=== PATIENT | female | born 1950 | race Caucasian/White ===

== ENCOUNTER 2020-10-21 08:11 | Outpatient (REF) | payer MEDICARE, SELFPAY ==
--- NOTE | ~2020-10-21 | MM_ITS ---
EXAMINATION: MM SCREENING DIGITAL BREAST TOMOSYNTHESIS, BILATERAL CLINICAL INFORMATION: Screening. Asymptomatic. The lifetime risk of breast cancer based on the Tyrer-Cuzick Model is 6%. COMPARISON: Mammography: 10/02/2019, 06/15/2018, 12/05/2017, 06/03/2017, 05/17/2016, 04/12/2015 TECHNIQUE: Digital breast tomosynthesis is performed in both the craniocaudal and mediolateral oblique views along with computer-aided detection (CAD). Synthesized 2D images are generated from the tomosynthesis. FINDINGS: There are scattered areas of fibroglandular density (ACR BI-RADS breast composition Category b). There are scattered chronic bilateral parenchymal asymmetries similar to prior studies. There is no developing density or interval mass or architectural abnormality. There are no abnormal calcifications. The bilateral axilla and skin contours are unremarkable. MM/MM tomosynthesis screening BI IMPRESSION: No significant changes from prior studies. ASSESSMENT: BI-RADS 2: Benign RECOMMENDATION: Routine annual mammography screening. This patient's information was entered into a reminder system with a target due date for their next mammogram.
== END 2020-10-21 08:12 | disposition home or self-care (01) ==
LOC: HO.MAMMO 08:11
PROVIDERS: Visit Provider Internal Medicine
DX: Z12.31 Encounter for screening mammogram for malignant neoplasm of breast (principal)
CPT/HCPCS: 77063; 77067

== ENCOUNTER 2021-07-30 12:12 | Emergency (ER) | payer MEDICARE, SELFPAY ==
--- NOTE | ~2021-07-30 | XR_ITS ---
EXAMINATION: XR SHOULDER, RIGHT CLINICAL INFORMATION: Pain COMPARISON: None TECHNIQUE: Right shoulder is imaged in 3 views. FINDINGS: No fracture, dislocation, destructive process. The acromioclavicular alignment is normal. The glenohumeral joint appears normal. No visible rotator cuff cuff calcifications. Right lung apex clear. No apical pneumothorax or pleural reaction. XR/XR shoulder RT min 2V IMPRESSION: Unremarkable right shoulder.
[2021-07-30 12:15] VITALS: BP 148/70; PULSE 78; RESP 20; TEMP 36.3; O2SAT 98; BMI 21.1
--- NOTE | 2021-07-30 13:21 | ED_ITS ---
HPI - Extremity Problem General Chief complaint: Extremity Injury, Upper Stated complaint: r shoulder pain Time Seen by Provider: 07/30/21 13:21 Source: patient Mode of arrival: ambulatory Limitations: no limitations History of Present Illness HPI Narrative: Patient is a 71 year old female presenting to the emergency department today with right shoulder pain that is worse with movement up or out. Patient states that she has right shoulder pain that worsens with movement up or out. Patient states that she did some extensive paddling in her canoe this last Friday, against wind, and primarily with her right side. Patient denies any dizziness, lightheadedness, abdominal pain, nausea, vomiting, fever, chills, blurry vision, double vision, loss of vision, chest pain, difficulty breathing, shortness of breath, back pain, night sweats, pain with urination, increased urinary frequency, increased urinary urgency, blood in her urine or stool, syncope or a near syncopal episode, recent trauma or falls, bowel incontinence, bladder incontinence, bowel retention, bladder retention, or any other complaints at this time. MD Complaint: extremity pain Onset (ago): hour(s) Pain Consistency: constant Location: right and upper extremity Severity scale (1-10): 3 Quality: dull Radiation: distal Relieving factors: nothing Exacerbating factors: range of motion Associated symptoms: denies other symptoms Related Data Previous Rx's Medication Instructions Recorded cyclobenzaprine 10 mg tablet 10 mg PO TID PRN shoulder pain 7 07/30/21 days #21 tabs Allergies Allergy/AdvReac Type Severity Reaction Status Date / Time No Known Allergies Allergy Unverified 10/28/19 16:32 [No Known Allergies*] Review of Systems Constitutional: Constitutional: Reports no additional constitutional complaints, Denies chills, Denies fever(s) and Denies night sweats Eyes: Eyes: Reports no additional eye complaints, Denies blurry vision, Denies change in vision, Denies diplopia, Denies eye discharge, Denies loss of vision and Denies eye pain ENT: Denies dizziness Cardiovascular: Cardiovascular: Reports no additional cardiovascular complaints, Denies chest pain, Denies lightheadedness, Denies Loss of Consciousness and Denies dyspnea Respiratory: Respiratory: Reports no additional respiratory complaints and Denies dyspnea Gastrointestinal: Gastrointestinal: Reports no additional gastrointestinal complaints, Denies abdominal pain, Denies melena, Denies hematochezia, Denies change in bowel habits and Denies change in stool character Genitourinary: Genitourinary: Denies hematuria, Denies urinary frequency, Denies dysuria, Denies urinary incontinence, Denies urinary hesitancy and Denies urinary urgency Musculoskeletal: Musculoskeletal: Reports no additional musculoskeletal complaints, Denies numbness and Denies tingling Comments: right shoulder pain Neurologic: Denies dizziness, Denies loss of vision, Denies numbness and Denie s tingling Psychiatric: Psychiatric: Reports no additional psychiatric complaints Endocrine: Endocrine: Reports no additional endocrine complaints Hematologic/Lymphatic: Hematologic/Lymphatic: Reports no additional hematologic/lymphatic complaints Allergic/Immunologic: Allergic/Immunologic: Reports no additional allergic/immunologic complaints [facility] Past Medical History Attestation statement: The following information was validated with the patient. Source: old records reviewed Social History Social History Advance Directives: No Advance Directives Information Provided: No Physical Exam Vital Signs: Vital Signs: Last Vital Signs Temp 97.3 F 07/30/21 12:15 Pulse 78 07/30/21 12:15 Resp 20 07/30/21 12:15 BP 148/70 H 07/30/21 12:15 Pulse Ox 98 07/30/21 12:15 O2 Del Method 07/30/21 12:15 BMI result Body Mass Index 21.1 Const: General: cooperative, no acute distress, alert and awake Nutritional Appearance: well nourished Orientation/consciousness: patient oriented x3 Limitations: no limitations HEENT: Head: Yes normal to inspection and Yes atraumatic Ears: hearing grossly normal bilaterally and external ears normal General nose exam: Normal external nose present, no nasal discharge noted and no epistaxis Face and sinus: Yes normal facial exam, No abrasion and No laceration Mouth: Normal o ral and palatal mucosa present, no drooling and no muffled voice Eyes: General: appearance normal, both eyes and all related structures Periorbital: periorbital findings normal Eyelids: Yes eyelids normal Conjunctivae: conjunctivae normal Pupils: Equal, round and reactive pupils present EOM: EOMs intact bilaterally Neck: Neck: Yes normal visual inspection, Yes full ROM and Yes no lymphadenopathy Chest: Chest palpation & inspection: normal inspection of the chest Resp: Effort & Inspection: normal respiratory effort and able to speak in complete sentences Auscultation: clear to auscultation bilaterally Cardio: Rate: regular rate Rhythm: regular rhythm GI: Inspection: Yes normal to inspection Neuro: General: patient oriented x3 and moves all extremities Cranial nerves: Yes Equal, round and reactive pupils present Cognition (Neuro): normal cognition Motor exam (neuro): 5/5 motor strength present throughout Sensory Exam: Normal double simultaneous stimulation for sensation Coordination: [id number] test normal Extrem: Other: patient has pain with abduction General: Yes normal to inspection and Yes capillary refill normal Psych: Appearance: grossly normal Mental Status: mental status grossly normal Affect: normal affect Attitude: cooperative Thought process: Normal thought process present Thought content: Normal thought content present Insight: Good insight present (Psych) MDM - Extremity (Nontraumatic) MDM Narrative Medical decision making narrative: Patient is a 71 year old female presenting to the emergency department today with right shoulder pain. Patient's physical exam showed pain in the right shoulder with abduction but was otherwise unremarkable. Patient's right shoulder x-ray showed no acute process. I explained my physical exam findings as well as all test results to the patient. I answered all questions asked by the patient. Patient received IM Toradol and PO Flexeril which she stated helped her symptoms significantly. I stressed the importance of the patient taking her medication as prescribed. I stressed the importance of the patient following up with her primary care provider and an orthopedic provider. I stressed the importance of the patient returning to the emergency department immediately if her symptoms were to worsen or if she were to develop any dizziness, shortness of breath, difficulty breathing, chest pain, blurry vision, loss of vision, nausea, vomiting, abdominal pain, fever, chills, back pain, or any other complaints. Patient verbalized agreement and understanding with this treatment plan and discharge. Differential Diagnosis Differential diagnosis: Unlikely herpes zoster (rotator cuff injury) Medical Records Attestation: I reviewed the patient's medical records. Imaging Data Right shoulder x-ray: Attestation: I personally reviewed and interpreted this imaging study as follows: My impression: No acute process. Radiologist's impression: EXAMINATION: XR SHOULDER, RIGHT CLINICAL INFORMATION: Pain? COMPARISON: None? TECHNIQUE: Right shoulder is imaged in 3 views. FINDINGS: No fracture, dislocation, destructive process. The acromioclavicular alignment is normal. The glenohumeral joint appears normal. No visible rotator cuff cuff calcifications. Right lung apex clear. No apical pneumothorax or pleural reaction. ? XR/XR shoulder RT min 2V IMPRESSION: Unremarkable right shoulder. Dictated By: Андрей Rudd MD Signed By: Electronically signed by Андрей Rudd MD 07/30/21 7882 Discharge Plan Discharge Clinical Impression: Rotator cuff injury Patient Disposition: Home, Self-Care Instructions: Rotator Cuff Injury (ED) Additional Instructions: Follow up with your primary care provider and an orthopedic provider. Return to the emergency department immediately if your symptoms worsen or if you develop any dizziness, shortness of breath, difficulty breathing, chest pain, blurry vision, loss of vision, nausea, vomiting, abdominal pain, fever, chills, back pain, or any other complaints. Prescriptions: New cyclobenzaprine 10 mg tablet 10 mg PO TID PRN (Reason: shoulder pain) 7 Days Qty: 21 0RF Referrals: [facility] [Provider Group] Mariana Jean MD [Primary Care Provider] - Print Language: Mongolian
[2021-07-30] MEDS: Ketorolac Tromethamine 15 MG/ML VIAL IM (15:01)
[2021-07-30] MEDS: Cyclobenzaprine HCl 5 MG TABLET PO (15:02)
[2021-07-30 15:06] VITALS: BP 188/85; PULSE 81; RESP 16; TEMP 36.5; O2SAT 99
== END 2021-07-30 15:13 | disposition home or self-care (01) ==
PROVIDERS: Emergency Provider Emergency Medicine; PCP Internal Medicine
DX: M75.101 Unspecified rotator cuff tear or rupture of right shoulder, not specified as traumatic (principal); M25.511 Pain in right shoulder; Z79.899 Other long term (current) drug therapy
CPT/HCPCS: 73030; 96372; 99284; J1885

== ENCOUNTER → 2021-08-02 10:49 | Outpatient (BNVA) | payer MEDICARE, SELFPAY | PROVIDERS: PCP Internal Medicine; Visit Provider Physician Assistant | DX: M75.81 Other shoulder lesions, right shoulder (principal) | CPT/HCPCS: 99202 ==

== ENCOUNTER 2021-09-28 11:00 | Outpatient (RCR) | payer MEDICARE, SELFPAY ==
--- NOTE | 2021-08-27 14:00 | MHC.PT.EP ---
[facility] [place] Office [place] Office [place] Office [address] [phone] F: [phone] F: [phone] F: [phone] F: [phone] Physical Therapy Plan of Care Date of Evaluation: Date of Surgery: NA Diagnosis: R SHOULDER PAIN Assessment: Pt IS 71 YO F REFERRED TO PT FROM ORTHO ([facility]) WITH R SHLDER PAIN (Pt REPORTS L SHLDER STARTED TO BOTHER HER ALSO). Pt REPORTS HX OF NECK SURGERY IN DISTANT PAST. 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 SHOULD BENEFIT FROM PT TO ADDRESS THESE ISSUES. Frequency and Duration: The patient will be seen 2X/WK X 6 WKS Short Term Goals: 1. INCREASED POSTURE AWARENESS AND AWARENESS SHLDER/NECK CARE 2. LESS HAND PARESTHESIA REPORTED 3. 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 DECREASED PAIN R SHLDER AT LEAST 50% WITH ADLS 2. I HEP WITH DC EX PLAN 3. IMPROVED SPADI (18/130 AT SOC) Treatment Plan: Modalities to reduce pain, spasms and effusion. Manual therapy to restore motion and function. Therapeutic exercise to improve strength and flexibility. Neuromuscular re-education for posture and balance. Therapeutic activities to return to functional activities of daily living. Electronically signed by: TARYN HOUGH PT Please sign and return to therapist. Thank you for your referral.
--- NOTE | 2021-10-16 15:28 | MHC.PT.DC ---
[facility] [place] Office [place] Office [place] Office [address] Heather Bueno [address] [phone] F: [phone] F: [phone] F: [phone] F: [phone] Physical Therapy Discharge Report Diagnosis: R SHOULDER PAIN Date of Surgery: NA Date of Evaluation: 08/27/21 Date of Discharge: 10/16/21 Treatments to Date: 7 Cancellations to Date: No Shows to Date: Discharge Status: Independent with HEP Patient Elected to Stop Discharge Summary: Pt SEEN FOR INIT EVAL AND 6 SESSIONS. AT LAST APPT PER ASSESSMENT BY PATRICK FORD CLIENT ASSOCIATE 09/28 No px with above ex today. Held prone sh ext (pt was doing them B/L has had prior cerv surgery and was noted this day to have poor cerv positioning. NO FURTHER APPTS SCHEDULED (?). THIS PT CALLED TO Pt'S HOME ([phone]) BUT NO ANSWER AND NO ANSWERING MACHINE. WILL DC AT THIS TIME WITH HEP Electronically signed by: TARYN HOUGH PT Please sign and return to therapist. Thank you for your referral.
== END 2021-10-16 15:29 | disposition home or self-care (01) ==
LOC: HO.PT 11:00
PROVIDERS: PCP Internal Medicine; Visit Provider Physician Assistant
DX: M75.80 Other shoulder lesions, unspecified shoulder (principal)
CPT/HCPCS: 97110; 97140; 97161

== ENCOUNTER 2021-11-05 08:50 | Outpatient (REF) | payer MEDICARE, SELFPAY ==
--- NOTE | ~2021-11-05 | MM_ITS ---
EXAMINATION: MM SCREENING DIGITAL BREAST TOMOSYNTHESIS, BILATERAL CLINICAL INFORMATION: Screening. Asymptomatic. The lifetime risk of breast cancer based on the Tyrer-Cuzick Model is 9%. COMPARISON: Mammography: 10/21/2020, 10/02/2019, 06/15/2018, 12/05/2017, 2018, 11/22/2016, 05/17/2016. TECHNIQUE: Digital breast tomosynthesis is performed in both the craniocaudal and mediolateral oblique views along with computer-aided detection (CAD). Synthesized 2D images are generated from the tomosynthesis. FINDINGS: There are scattered areas of fibroglandular density (ACR BI-RADS breast composition Category b). Parenchymal pattern is similar to multiple prior exams. There are scattered bilateral stable asymmetries. Nodular asymmetry posterior upper outer left breast and anterior upper right breast are stable. There are no interval architectural changes. No architectural abnormality. No abnormal calcifications. The axilla are unremarkable. Skin contours are smooth. No skin thickening or retraction. No significant changes. MM/MM tomosynthesis screening BI IMPRESSION: No significant changes from prior studies. ASSESSMENT: BI-RADS 2: Benign RECOMMENDATION: Routine annual mammography screening. This patient's information was entered into a reminder system with a target due date for their next mammogram.
== END 2021-11-05 08:51 | disposition home or self-care (01) ==
LOC: HO.MAMMO 08:50
PROVIDERS: Visit Provider Internal Medicine
DX: Z12.31 Encounter for screening mammogram for malignant neoplasm of breast (principal)
CPT/HCPCS: 77063; 77067

== ENCOUNTER → 2021-11-29 11:12 | Outpatient (BNVA) | payer MEDICARE, SELFPAY | PROVIDERS: PCP Internal Medicine; Visit Provider Psychiatry & Neurology Psychiatry | DX: F32.5 Major depressive disorder, single episode, in full remission (principal) | CPT/HCPCS: 99212 ==

== ENCOUNTER → 2022-05-14 09:11 | Outpatient (BNVA) | payer MEDICARE, SELFPAY | PROVIDERS: PCP Internal Medicine; Visit Provider Psychiatry & Neurology Psychiatry | DX: F32.5 Major depressive disorder, single episode, in full remission (principal); M19.90 Unspecified osteoarthritis, unspecified site | CPT/HCPCS: 99212 ==

== ENCOUNTER 2022-11-07 09:44 | Outpatient (REF) | payer MEDICARE, SELFPAY | END 2022-11-07 09:45 | disposition home or self-care (01) | LOC: HO.MAMMO 09:44 | PROVIDERS: Visit Provider Internal Medicine | DX: Z12.31 Encounter for screening mammogram for malignant neoplasm of breast (principal) | CPT/HCPCS: 77063; 77067 ==

== ENCOUNTER → 2022-11-07 10:00 | Outpatient (BNV) | payer MEDICARE, SELFPAY | PROVIDERS: Visit Provider Radiology Diagnostic Radiology | DX: Z12.31 Encounter for screening mammogram for malignant neoplasm of breast (principal) | CPT/HCPCS: 77063; 77067 ==

== ENCOUNTER 2023-06-01 22:06 | Emergency (ER) | payer MEDICARE, OTHER, SELFPAY ==
--- NOTE | ~2023-06-01 | CT_ITS ---
EXAMINATION: CT head/brain wo IV con CLINICAL INFORMATION: transient vision loss/cva COMPARISON: CT head 07/23/2016 TECHNIQUE: Contiguous axial imaging was performed from the skull base to vertex without intravenous contrast. This CT examination was performed using dose optimization techniques as appropriate, variously including the following: * Automated exposure control * Adjustment of mA and/or kV according to patient size (this includes techniques or standardized protocols for targeted exams where dose is matched to indication/reason for exam; i.e. extremities or head) * Use of iterative reconstruction technique DLP: 586 mGy-cm. FINDINGS: There is no evidence of acute intracranial hemorrhage or territorial infarction. Ramsey to white matter differentiation is well preserved. No abnormal mass effect or midline shift is seen. No extra-axial fluid collections are identified. No hydrocephalus. Proportional prominence of the ventricles and sulcal spaces is consistent with mild volume loss. Patchy periventricular and deep white matter hypoattenuation is consistent with mild small vessel ischemic changes. The cerebellar tonsils are well positioned. No acute osseous or soft tissue abnormality. Visualized portions of the orbits are unchanged. The mastoid air cells and visualized portions of the paranasal sinuses are well aerated. CT/CT head/brain wo IV con IMPRESSION: No acute intracranial pathology.
[2023-06-01 22:10] VITALS: BP 199/101; PULSE 85; RESP 18; TEMP 36.4; O2SAT 100; BMI 21.6
[2023-06-01 22:19] VITALS: BP 193/103; PULSE 82; RESP 14; TEMP 36.3; O2SAT 100
--- NOTE | 2023-06-01 22:19 | PC.NURSE ---
Dr. Cantu made aware of pt.
--- NOTE | 2023-06-01 22:23 | ED_ITS ---
HPI - Neuro Symptoms/Deficit General Chief Complaint: Stroke Stated Complaint: stroke??? Time Seen by Provider: 06/01/23 22:23 Source: patient Mode of arrival: ambulatory Limitations: no limitations History of Present Illness HPI Narrative: Patient history of anxiety/depression otherwise healthy was in the bed reading the book and around 2139 noticed that her headache with nausea and unable to see properly lasted for about 10-15 minute no focal weakness would overall feeling weak with unsteady gait no chest pain no scotomas now patient is back to normal never had similar complaint in the past no history of migraine or seizures Related Data Home Medications ?Medication ?Instructions ?Recorded ?Confirmed gabapentin 100 mg capsule 100 mg PO BID 08/02/21 Previous Rx's ?Medication ?Instructions ?Recorded bupropion HCl 300 mg 24 hr tablet, 300 mg PO DAILY #30 tabs 05/15/23 extended release aspirin 81 mg tablet,delayed 81 mg PO DAILY #30 tabs 06/02/23 release Allergies Allergy/AdvReac Type Severity Reaction Status Date / Time No Known Allergies Allergy Verified 06/01/23 22:11 [No Known Allergies*] Review of Systems 2 Review of Systems: Yes all other systems are reviewed and are negative [facility] Past Medical History Medical History Major depression in complete remission PMR (polymyalgia rheumatica) Osteoarthritis Social History Social History Patient Tobacco Use Status: Never used Tobacco Advance Directives: No Advance Directives Information Provided: No 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 Oriented X3. No acute distress. Eyes: PERRLA, No Nystagmus fundus normal visual weaver normal ENT: Pharynx normal. Oral Mucosa moist Neck: Normal inspection. Neck supple. CVS: Normal heart rate and rhythm. Pulses normal. Respiratory: No respiratory distress. Equal air entry bilateral, no wheezing/rales/rhonchi Abdomen: Soft and nontender. Bowel sounds are present, no mass palpable, no CVA tenderness Skin: Skin warm and dry. Normal skin color. Normal skin turgor. Extremities: No lower extremity edema. No calf tenderness Neuro: Oriented X 3. No motor deficit. No sensory deficit.No cerebellar signs , cranial nerves II-XII intact normal speech Medications Administered Discontinued Medications Generic Name Dose Route Start Last Admin Trade Name Shruthi PRN Reason Stop Dose Admin Acetaminophen/Butalbital/Caffeine 1 tab 06/02/23 00:47 06/02/23 01:03 Butalb/Acetamin/Caff 50/325/40 Tablet PO 06/02/23 00:48 1 tab ONCE ONE Administration Aspirin 81 mg 06/02/23 00:41 06/02/23 01:04 Aspirin 81 Mg Tab.Chew PO 06/02/23 00:42 81 mg ONCE ONE Administration Ondansetron HCl 4 mg 06/02/23 00:47 06/02/23 01:04 Ondansetron Odt 4 Mg Tab.Rapdis TRANSLINGU 06/02/23 00:48 4 mg ONCE ONE Administration Medical Decision Making Medical Decision Making [facility] Narrative: Patient with TBVL with CT scan negative no arrhythmias no carotid bruit with headache likely the cause possible migraine. Patient ESR normal, CRP temporal arteritis ruled out no tenderness in the temporal area patient was given Fioricet and aspirin advised to follow with neurology, does have sinus rhythm. Patient ambulatory in the ED in steady gait Differential Diagnosis Differential Diagnoses: The differential diagnosis associated with the presentation includes Amaurosis fugax/TIA/migraine headache/temporal arteritis Admission/Observation Consideration of admission/observation: Escalation of care including admission/observation considered Lab Data [facility] Lab Attestation statement: I reviewed the patient's lab results. 06/01/23 22:38 06/01/23 22:38 Labs: Lab Results 06/01/23 06/01/23 Range/Units 22:32 22:38 WBC 3.8 L (4.8-10.8) X10*3/uL RBC 4.47 (4.20-5.50) X10*6/uL Hgb 12.8 (12.0-16.0) g/dl Hct 37.7 (37.0-47.0) % MCV 84.3 (80.0-98.0) fL MCH 28.6 (27.0-33.0) pg MCHC 34.0 (31.0-35.0) g/dl RDW 12.7 (11.0-16.0) % Plt Count 180 (160-400) X10*3/uL MPV 9.0 L (9.4-12.3) fL Immature Gran % (Auto) 0.3 (0.0-0.4) % Neut % (Auto) 45.1 (45-73) % Lymph % (Auto) 34.6 (20-40) % [place] % (Auto) 13.7 H (2-11) % Eos % (Auto) 5.8 H (0-4) % Baso % (Auto) 0.5 (0-2) % Lymph # (Auto) 1.3 (1.2-4.9) X10*3/uL [place] # (Auto) 0.5 (0.1-1.2) X10*3/uL Eos # (Auto) 0.2 (0.0-0.4) X10*3/uL Baso # (Auto) 0.0 (0.0-0.2) X10*3/uL Abs Immat Gran (auto) 0.01 (0.00-0.03) X10*3/uL Absolute Neuts (auto) 1.7 L (2.0-8.3) x10*3/uL Absolute Nucleated RBC 0.000 (0.0-0.012) X10*3/uL Nucleated RBC % (auto) 0.0 (0.0-0.2) /100WBC ESR 8 (0-20) MM/HR PT 10.8 L (11.1-13.3) SEC INR 0.9 (0.9-1.1) APTT 30.8 (26.0-36.8) SEC Sodium 139 (135-145) mmol/L Potassium 3.6 (3.3-5.1) mmol/L Chloride 104 (96-108) mmol/L Carbon Dioxide 29 (22-29) mmol/L Anion Gap 10 L (12-20) BUN 18 H (9-16) mg/dL Creatinine 0.74 (0.5-1.4) mg/dL Estim Creat Clear Calc 47.9 Estimated GFR > 60 POC Glucose 99 (60-115) mg/dL Random Glucose 110 (60-115) mg/dL Calcium 9.4 (8.4-10.2) mg/dL Magnesium 2.2 (1.6-2.6) mg/dL Total Bilirubin 0.2 (0.0-1.0) mg/dL AST 22 (5-31) U/L ALT 18 (0-31) U/L Alkaline Phosphatase 76 (39-117) U/L Troponin I High Sens < 2.7 (<3.5-17.0) ng/L C-Reactive Protein < 0.04 (< or = 0.50) mg/dL Total Protein 6.9 (6.5-8.0) g/dL Albumin 4.4 (3.5-5.0) g/dL Independent Interpretation I performed an independent interpretation of an: CT Scan Radiology Impression Discussion of test interpretation with radiology: I have reviewed the radiologist's reading. Discharge Plan Discharge Clinical Impression: AFX (amaurosis fugax) Patient Disposition: Home, Self-Care Instructions: Transient Ischemic Attack (ED) Additional Instructions: Visual disturbance likely from spasm while the blood vessels possible migraine Take baby aspirin daily Follow up with PCP/neurology Report to the ER if recurrence of the symptoms or any focal weakness Prescriptions: New aspirin 81 mg tablet,delayed release (DR/EC) 81 mg PO DAILY Qty: 30 0RF No Action bupropion HCl 300 mg tablet extended release 24 hr 300 mg PO DAILY Qty: 30 4RF gabapentin 100 mg capsule 100 mg PO BID Referrals: Shanda Kelly MD [Physician] - 1 week Print Language: Cymraes
--- NOTE | 2023-06-01 22:33 | ECG_ITS ---
Test Reason : STROKE Blood Pressure : / mmHG Vent. Rate : 083 BPM Atrial Rate : 083 BPM P-R Int : 162 ms QRS Dur : 086 ms QT Int : 362 ms P-R-T Axes : 056 046 052 degrees QTc Int : 425 ms Normal sinus rhythm Normal ECG When compared with ECG of 25-APR-2005 11:05, No significant change was found Referred By: Eliezer Shepard Electronically Signed By:KEVIN STEPHENS MD
[2023-06-01 22:36] LABS: Glucose, Whole Blood 99 mg/dL (60-115)
[2023-06-01 22:43] LABS: MANUAL DIFF FLAG NO
[2023-06-01 22:44] LABS: Basophils Percent Auto 0.5 % (0-2); Eosinophils Absolute Auto 0.2 X10*3/uL (0.0-0.4); Eosinophils Percent Auto 5.8 % (0-4); Hematocrit 37.7 % (37.0-47.0); Hemoglobin 12.8 g/dl (12.0-16.0); Imm Gran Abs Auto 0.01 X10*3/uL (0.00-0.03); Imm Gran Pct Auto 0.3 % (0.0-0.4); Lymphocytes Absolute Auto 1.3 X10*3/uL (1.2-4.9); Lymphocytes Percent Auto 34.6 % (20-40); Mean Corpuscular Hemoglobin 28.6 pg (27.0-33.0); Mean Corpuscular Volume 84.3 fL (80.0-98.0); Monocytes Absolute Auto 0.5 X10*3/uL (0.1-1.2); Monocytes Percent Auto 13.7 % (2-11); Neutrophils Absolute Auto 1.7 x10*3/uL (2.0-8.3); Neutrophils Percent Auto 45.1 % (45-73); Platelet Count 180 X10*3/uL (160-400); Red Blood Count 4.47 X10*6/uL (4.20-5.50); Red Cell Distribution Width 12.7 % (11.0-16.0); White Blood Count 3.8 X10*3/uL (4.8-10.8)
[2023-06-01 22:49] LABS: INTERNATIONAL NORM RATIO 0.9 (0.9-1.1); Prothrombin Time 10.8 SEC (11.1-13.3)
[2023-06-01 22:52] LABS: Partial Thromboplastin Time 30.8 SEC (26.0-36.8)
[2023-06-01 23:12] LABS: Alanine Aminotransferase 18 U/L (0-31); Albumin Level 4.4 g/dL (3.5-5.0); Alkaline Phosphatase 76 U/L (39-117); Anion Gap 10 (12-20); Aspartate Amino Transferase 22 U/L (5-31); Bilirubin Total 0.2 mg/dL (0.0-1.0); Blood Urea Nitrogen 18 mg/dL (9-16); Calcium 9.4 mg/dL (8.4-10.2); Carbon Dioxide 29 mmol/L (22-29); Chloride 104 mmol/L (96-108); Creatinine Clr Calc Pharmacy 47.9; Estimated Glomerular Filt Rate > 60; Glucose Random 110 mg/dL (60-115); Magnesium 2.2 mg/dL (1.6-2.6); Potassium 3.6 mmol/L (3.3-5.1); Sodium 139 mmol/L (135-145); Total Protein 6.9 g/dL (6.5-8.0)
[2023-06-01 23:20] LABS: Troponin-I High Sensitivity < 2.7 ng/L (<3.5-17.0)
[2023-06-02 00:34] VITALS: BP 172/82; PULSE 70; RESP 12; TEMP 36.4; O2SAT 99
[2023-06-02] MEDS: Butalb/Acetamin/Caff 50/325/40 TABLET 1 TAB PO (01:03)
[2023-06-02] MEDS: Ondansetron ODT 4 MG TAB.RAPDIS TRANSLINGU (01:04)
[2023-06-02] MEDS: Aspirin 81 MG TAB.CHEW PO (01:04)
[2023-06-02 01:11] LABS: C Reactive Protein < 0.04 mg/dL (< or = 0.50)
[2023-06-02 01:32] LABS: Erythrocyte Sedimentation Rate 8 MM/HR (0-20)
[2023-06-02 01:49] VITALS: BP 169/72; PULSE 72; RESP 18; TEMP 36.7; O2SAT 98
== END 2023-06-02 01:49 | disposition home or self-care (01) ==
PROVIDERS: Emergency Provider Internal Medicine; PCP Family Medicine
DX: G45.3 Amaurosis fugax (principal); R51.9 Headache, unspecified; R11.2 Nausea with vomiting, unspecified; R26.81 Unsteadiness on feet; Z79.899 Other long term (current) drug therapy
CPT/HCPCS: 36415; 70450; 80053; 82947; 83735; 84484; 85025; 85610; 85652; 85730; 86140; 93005; 99284

== ENCOUNTER → 2023-06-01 22:33 | Outpatient (BNV) | payer OTHER, SELFPAY | PROVIDERS: Emergency Provider Internal Medicine; PCP Family Medicine; Visit Provider Internal Medicine Cardiovascular Disease | DX: I63.9 Cerebral infarction, unspecified (principal) | CPT/HCPCS: 93010 ==

== ENCOUNTER 2023-08-21 13:54 | Outpatient (REF) | payer MEDICARE, OTHER, SELFPAY ==
--- NOTE | ~2023-08-21 | US_ITS ---
EXAMINATION: US EXTRACRANIAL CAROTID DUPLEX, BILATERAL CLINICAL INFORMATION: TIA COMPARISON: None available. TECHNIQUE: Real-time ultrasound and Doppler techniques (integrating B-mode 2-D vascular images, Doppler spectral analysis and color-flow Doppler imaging) were utilized to interrogate the extracranial carotid arteries, the vertebral arteries and proximal subclavian arteries bilaterally. The degree of stenosis is determined by criteria similar to NASCET. FINDINGS: Right Side: 1. There is no atherosclerotic plaque seen in the bifurcation/proximal ICA region. 2. The common carotid artery PSV proximally is 50.6 cm/s and distally 50.8 cm/s. 3. The proximal internal carotid artery velocities are 43.9 cm/s systolic and 15.2 cm/s diastolic. 4. The proximal external carotid artery PSV is 52.2 cm/s. 5. The vertebral artery shows antegrade flow. 6. The subclavian artery waveforms are normal. Left Side: 1. There is no atherosclerotic plaque seen in the bifurcation/proximal ICA region. 2. The common carotid artery PSV proximally is 96.9 cm/s and distally 57.4 cm/s. 3. The proximal internal carotid artery velocities are 45.9 cm/s systolic and 18.2 cm/s diastolic. 4. The proximal external carotid artery PSV is 43.6 cm/s. 5. The vertebral artery shows antegrade flow. 6. The subclavian artery waveforms are normal. US/US carotid duplex BI IMPRESSION: 1. RIGHT: Normal right internal carotid artery without atherosclerotic plaque or hemodynamically significant stenosis. 2. LEFT: Normal left internal carotid artery without atherosclerotic plaque or hemodynamically significant stenosis.
== END 2023-08-21 13:55 | disposition home or self-care (01) ==
LOC: HO.US 13:54
PROVIDERS: PCP Family Medicine; Visit Provider Psychiatry & Neurology Neurology
DX: G45.9 Transient cerebral ischemic attack, unspecified (principal)
CPT/HCPCS: 93880

== ENCOUNTER 2023-08-22 11:18 | Outpatient (AMB) | payer MEDICARE, OTHER, SELFPAY ==
--- NOTE | 2023-08-22 11:34 | MHC.OFFVISPS ---
Intake Intake Visit Reasons: depression Allergies No Known Allergies [No Known Allergies*] Allergy (Verified 06/01/23 22:11) Medication List - Last Reconciled 08/22/23 by Pete Villareal MD albuterol sulfate 90 mcg/actuation inhalation aspirin 81 mg PO DAILY atorvastatin 40 mg PO DAILY bupropion HCl XL 300 mg PO DAILY gabapentin 100 mg PO BID HPI- Psychiatric Chief Complaint: depression HPI Narrative: Pt seen in f/u does have a partner that lives in a different house a short distance away this works out quite well for her. Patient very active with her children. Pleasant has good friends future oriented no depressive episodes seems quite content her life. Future oriented able to enjoy things no significant medical concerns noted. Past Psychiatric History: outpt hx of depression no suicidal episodes no psychiatric admissions has been in long-term outpatient treatment and has generally done well the past number of years Assessment and Plan Assessment & Plan (1) Major depression in complete remission: Status: Acute Code(s): F32.5 - Major depressive disorder, single episode, in full remission Plan Continue Wellbutrin 300 mg daily has been stable on this dose without side effects for a number of years. Discussed with patient possibility of seen her PCP for management of medication has been in a good stable emotional place history of polymyalgia Medications: Refilled bupropion HCl XL 300 mg PO DAILY 90 tabs 2RF Counseling and coordination of Care Medication management counseling: Effectiveness, Side effects and Duration Diagnosis and Prognosis Counseling: Adequacy of current interventions Details-Diagnosis/Prognosis counseling: Discussed with patient option to taper down on Wellbutrin wishes to continue at current dose feels stable history of past depressive episodes no complaints of side effects continue plan of care Details: I spent [30] minutes reviewing the record, seeing the patient and documenting in the medical record. Counseling provided to the patient/caregiver as outlined below. Addressed patient/caregiver concerns regarding current medication regime including effective adherence. Addressed patient/caregiver concerns regarding diagnosis and prognosis including accuracy of diagnosis, prognosis over time, impact of diagnosis. Addressed patient/caregiver concerns regarding impact of recent stressors. 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
== END 2023-08-22 11:45 | disposition home or self-care (01) ==
LOC: HO.HOP 11:18
PROVIDERS: PCP Family Medicine; Visit Provider Psychiatry & Neurology Psychiatry
DX: F32.5 Major depressive disorder, single episode, in full remission (principal)
CPT/HCPCS: 99214

== ENCOUNTER → 2023-08-22 11:18 | Outpatient (BNVA) | payer MEDICARE, OTHER, SELFPAY | PROVIDERS: PCP Family Medicine; Visit Provider Psychiatry & Neurology Psychiatry | DX: F32.5 Major depressive disorder, single episode, in full remission (principal) | CPT/HCPCS: 99212 ==

== ENCOUNTER 2023-11-08 20:39 | Emergency (ER) | payer MEDICARE, OTHER, SELFPAY ==
--- NOTE | ~2023-11-08 | CT_ITS ---
EXAMINATION: CT CERVICAL SPINE WITHOUT CONTRAST CLINICAL INFORMATION: Neck pain COMPARISON: None TECHNIQUE: Multidetector CT of the cervical spine was performed without intravenous contrast. Reformatted axial, coronal and sagittal images were reviewed. This CT examination was performed using dose optimization techniques as appropriate, variously including the following: *Automated exposure control *Adjustment of mA and/or kV according to patient size (this includes techniques or standardized protocols for targeted exams where dose is matched to indication/reason for exam; i.e. extremities or head) *Use of iterative reconstruction technique DLP: 232 mGy-cm FINDINGS: There is no fracture, malalignment or prevertebral soft tissue abnormality seen in the cervical spine. There is no abnormal widening of the predental space, separation of the lateral masses of C1 or facet joint distraction. Altered level degenerative changes resulting in varying degrees of neural foraminal stenosis. For example, there is severe left neural foraminal stenosis at C4-5 on the left and moderate bilateral neural foraminal stenosis at C5-6. Vertebral body and intervertebral disc height are normal. The visualized portions of the brain are unremarkable. Right apical [address]/CT cervical spine wo IV con IMPRESSION: 1. No acute fracture or malalignment of the cervical spine. 2. Multilevel degenerative changes resulting in varying degrees of neural foraminal stenosis. This is worst at C4-5 on the left where there is severe left neural foraminal stenosis. 3. Right apical 6 mm groundglass nodule. According to the UPDATED 2017 Fleischner Society recommendations, the advised follow-up imaging for a single pure ground-glass nodule measuring 6 mm or greater is: CT at 6-12 months to confirm persistence, then CT every 2 years until 5 years if it persists. Electronically signed by: Leo Esteban DO 11/08/2023 09:54 PM EDT
--- NOTE | 2023-11-08 20:46 | ED_ITS ---
HPI - General Adult General Chief complaint: General Medical Stated complaint: rt side neck pain Time Seen by Provider: 11/09/23 00:40 Source: patient Limitations: no limitations History of Present Illness ED Provider: Maryana Ramos PA-C HPI narrative: 73-year-old female with a history of osteoarthritis, depression and prior rotator cuff tendinitis presents with neck pain x2 weeks. Pain primarily over right side of the neck. Pain is nonradiating. Denies right upper extremity discomfort or weakness, no paresthesias. Patient does not have a preceding injury. She denies headache, visual changes, nausea or vomiting. Related Data Home Medications ?Medication ?Instructions ?Recorded ?Confirmed gabapentin 100 mg capsule 100 mg PO BID 08/02/21 08/22/23 albuterol sulfate 90 mcg/actuation inhalation 08/22/23 08/22/23 aerosol inhaler atorvastatin 40 mg tablet 40 mg PO DAILY 08/22/23 08/22/23 Previous Rx's ?Medication ?Instructions ?Recorded aspirin 81 mg tablet,delayed 81 mg PO DAILY #30 tabs 06/02/23 release bupropion HCl 300 mg 24 hr tablet, 300 mg PO DAILY #90 tabs 08/22/23 extended release methocarbamol 500 mg tablet 500 mg PO TID PRN pain #15 tabs 11/09/23 methylprednisolone 4 mg tablets in 4 mg PO QAM #1 ea 11/09/23 a dose pack (Medrol (Esteban)) Allergies Allergy/AdvReac Type Severity Reaction Status Date / Time No Known Allergies Allergy Verified 11/08/23 20:48 [No Known Allergies*] Review of Systems 2 Review of Systems: Yes all other systems are reviewed and are negative Constitutional: Constitutional: Denies fatigue and Denies fever(s) ENT: Reports neck pain Cardiovascular: Cardiovascular: Denies chest pain and Denies dyspnea Respiratory: Respiratory: Denies dyspnea Gastrointestinal: Gastrointestinal: Denies vomiting Musculoskeletal: Musculoskeletal: Reports neck pain and Denies tingling Neurologic: Denies tingling Endocrine: Endocrine: Denies fatigue PMF Past Medical History Attestation statement: The following information was validated with the patient. 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 Physical Exam ED Vital Signs: Vital Signs - 24 hr 11/08/23 20:47 11/09/23 00:07 Temperature 98.2 F 98.3 F Pulse Rate 87 78 Respiratory Rate 19 16 Blood Pressure 122/54 L 126/63 Pulse Oximetry 98 100 Oxygen Delivery Method Room Air Room Air BMI result Body Mass Index 20.9 Const Other: Alert, well in appearance Orientation/consciousness: patient oriented x3 Neck Other: Pain elicited with range of motion of the neck, she has full range of motion, no meningeal signs Resp Effort & Inspection: normal respiratory effort Cardio Other: Peripheral perfusion Skin Other: Warm dry no rash Neuro Other: Ambulates with normal steady gait General: patient oriented x3, no focal motor deficits and CN's II-XI intact bilaterally Psych Other: Calm cooperative Course Course Course Narrative: This is an RME: Additional HPI, ROS, PE not included below will be deferred to primary provider. [facility] assessment and note performed by: Valeria Kimball PA-C This is a [id number]-[id number]-female, with no known medical problems, who presents to the ER with complaints of atraumatic right sided neck pain which started several weeks ago. No trauma or injury. Plan:Labs, and CT c spine ordered Medical Decision Making Medical Decision Making MDM Narrative: 73-year-old female with a history of osteoarthritis, depression and prior rotator cuff tendinitis presents with neck pain x2 weeks. Pain primarily over right side of the neck. Pain is nonradiating. Denies right upper extremity discomfort or weakness, no paresthesias. Patient does not have a preceding injury. She denies headache, visual changes, nausea or vomiting. Problem: Arthritis and age History: Per patient I have considered the following differential diagnoses: Cervical strain, VAD, cervical radiculopathy, meningitis Plan: Patient is assessment began from triage out in E , screening labs and a CT of her cervical spine were obtained. She has some significant degenerative changes. She requires an outpatient MRI, likely PT. She can follow up with the primary care provider. Sending with a steroid taper and muscle relaxant. Thought about VAD, however there was no preceding heavy lifting mechanism, she has had symptoms for 2 weeks and she is neuro intact. Thought about meningitis, however there are no meningeal signs on exam, she is not ill, she is afebrile. I have independently reviewed the following tests: Labs: No leukocytosis, not anemic, no electrolyte abnormality CT cervical spine:CT CERVICAL SPINE WITHOUT CONTRAST CLINICAL INFORMATION: Neck pain COMPARISON: None TECHNIQUE: Multidetector CT of the cervical spine was performed without intravenous contrast. Reformatted axial, coronal and sagittal images were reviewed. This CT examination was performed using dose optimization techniques as appropriate, variously including the following: *Automated exposure control *Adjustment of mA and/or kV according to patient size (this includes techniques or standardized protocols for targeted exams where dose is matched to indication/reason for exam; i.e. extremities or head) *Use of iterative reconstruction technique DLP: 232 mGy-cm FINDINGS: There is no fracture, malalignment or prevertebral soft tissue abnormality seen in the cervical spine. There is no abnormal widening of the predental space, separation of the lateral masses of C1 or facet joint distraction. Altered level degenerative changes resulting in varying degrees of neural foraminal stenosis. For example, there is severe left neural foraminal stenosis at C4-5 on the left and moderate bilateral neural foraminal stenosis at C5-6. Vertebral body and intervertebral disc height are normal. The visualized portions of the brain are unremarkable. Right apical [address]/CT cervical spine wo IV con IMPRESSION: 1. No acute fracture or malalignment of the cervical spine. 2. Multilevel degenerative changes resulting in varying degrees of neural foraminal stenosis. This is worst at C4-5 on the left where there is severe left neural foraminal stenosis. 3. Right apical 6 mm groundglass nodule. According to the UPDATED 2017 Fleischner Society recommendations, the advised follow-up imaging for a single pure ground-glass nodule measuring 6 mm or greater is: CT at 6-12 months to confirm persistence, then CT every 2 years until 5 years if it persists. Electronically signed by: Leo Esteban DO 11/08/2023 09:54 PM EDT Dictated By: Leo Esteban Signed By: <Electronically signed by Leo Esteban in OV> 11/08/23 2154 Lab Data 11/08/23 21:23 11/08/23 21:23 Labs: Lab Results 11/08/23 Range/Units 21:23 WBC 3.8 L (4.8-10.8) X10*3/uL RBC 3.98 L (4.20-5.50) X10*6/uL Hgb 11.5 L (12.0-16.0) g/dl Hct 34.3 L (37.0-47.0) % MCV 86.2 (80.0-98.0) fL MCH 28.9 (27.0-33.0) pg MCHC 33.5 (31.0-35.0) g/dl RDW 12.9 (11.0-16.0) % Plt Count 166 (160-400) X10*3/uL MPV 8.8 L (9.4-12.3) fL Immature Gran % (Auto) 0.0 (0.0-0.4) % Neut % (Auto) 48.8 (45-73) % Lymph % (Auto) 30.5 (20-40) % [place] % (Auto) 14.9 H (2-11) % Eos % (Auto) 5.3 H (0-4) % Baso % (Auto) 0.5 (0-2) % Lymph # (Auto) 1.2 (1.2-4.9) X10*3/uL [place] # (Auto) 0.6 (0.1-1.2) X10*3/uL Eos # (Auto) 0.2 (0.0-0.4) X10*3/uL Baso # (Auto) 0.0 (0.0-0.2) X10*3/uL Abs Immat Gran (auto) 0.00 (0.00-0.03) X10*3/uL Absolute Neuts (auto) 1.8 L (2.0-8.3) x10*3/uL Absolute Nucleated RBC 0.000 (0.0-0.012) X10*3/uL Nucleated RBC % (auto) 0.0 (0.0-0.2) /100WBC ESR 12 (0-20) MM/HR Sodium 140 (135-145) mmol/L Potassium 3.9 (3.3-5.1) mmol/L Chloride 105 (96-108) mmol/L Carbon Dioxide 26 (22-29) mmol/L Anion Gap 13 (12-20) BUN 34 H (9-16) mg/dL Creatinine 0.86 (0.5-1.4) mg/dL Estim Creat Clear Calc 41.1 Estimated GFR > 60 Random Glucose 77 (60-115) mg/dL Calcium 9.1 (8.4-10.2) mg/dL Total Bilirubin 0.2 (0.0-1.0) mg/dL Direct Bilirubin < 0.2 (0.0-0.5) mg/dL AST 24 (5-31) U/L ALT 21 (0-31) U/L Alkaline Phosphatase 90 (39-117) U/L C-Reactive Protein < 0.10 (< or = 0.50) mg/dL Total Protein 6.7 (6.5-8.0) g/dL Albumin 4.1 (3.5-5.0) g/dL Discharge Plan Discharge Clinical Impression: Cervical arthritis, Osteoarthritis Patient Disposition: Home, Self-Care Instructions: Osteoarthritis (ED) Additional Instructions: You were found to have significant arthritic changes of the neck. You need to follow up with your primary care provider, the next step would be to have an outpatient MRI. It Is likely that you will also be referred for physical therapy. Use the steroid taper as directed, take this medication in the morning. Use the methocarbamol, this is a muscle relaxant, as needed for pain. To note it may cause drowsiness, do not drive or operate machinery while taking the medication. Prescriptions: New methylprednisolone [Medrol (Esteban)] 4 mg tablets,dose pack 4 mg PO QAM Qty: 1 0RF Rx Instructions: Use per package instructions methocarbamol 500 mg tablet 500 mg PO TID PRN (Reason: pain) Qty: 15 0RF No Action aspirin 81 mg tablet,delayed release (DR/EC) 81 mg PO DAILY Qty: 30 0RF gabapentin 100 mg capsule 100 mg PO BID atorvastatin 40 mg tablet 40 mg PO DAILY albuterol sulfate 90 mcg/actuation HFA aerosol inhaler inhalation bupropion HCl 300 mg tablet extended release 24 hr 300 mg PO DAILY Qty: 90 2RF Print Language: Thai
[2023-11-08 20:47] VITALS: BP 122/54; PULSE 87; RESP 19; TEMP 36.8; O2SAT 98; BMI 20.9
[2023-11-08 21:31] LABS: MANUAL DIFF FLAG NO
[2023-11-08 21:32] LABS: Basophils Percent Auto 0.5 % (0-2); Eosinophils Absolute Auto 0.2 X10*3/uL (0.0-0.4); Eosinophils Percent Auto 5.3 % (0-4); Hematocrit 34.3 % (37.0-47.0); Hemoglobin 11.5 g/dl (12.0-16.0); Lymphocytes Absolute Auto 1.2 X10*3/uL (1.2-4.9); Lymphocytes Percent Auto 30.5 % (20-40); Mean Corpuscular HGB Conc 33.5 g/dl (31.0-35.0); Mean Corpuscular Hemoglobin 28.9 pg (27.0-33.0); Mean Corpuscular Volume 86.2 fL (80.0-98.0); Mean Platelet Volume 8.8 fL (9.4-12.3); Monocytes Absolute Auto 0.6 X10*3/uL (0.1-1.2); Monocytes Percent Auto 14.9 % (2-11); Neutrophils Absolute Auto 1.8 x10*3/uL (2.0-8.3); Neutrophils Percent Auto 48.8 % (45-73); Platelet Count 166 X10*3/uL (160-400); Red Blood Count 3.98 X10*6/uL (4.20-5.50); Red Cell Distribution Width 12.9 % (11.0-16.0); White Blood Count 3.8 X10*3/uL (4.8-10.8)
[2023-11-08 21:47] LABS: Alanine Aminotransferase 21 U/L (0-31); Albumin Level 4.1 g/dL (3.5-5.0); Alkaline Phosphatase 90 U/L (39-117); Anion Gap 13 (12-20); Aspartate Amino Transferase 24 U/L (5-31); Bilirubin Direct < 0.2 mg/dL (0.0-0.5); Bilirubin Total 0.2 mg/dL (0.0-1.0); Blood Urea Nitrogen 34 mg/dL (9-16); C Reactive Protein < 0.10 mg/dL (< or = 0.50); Calcium 9.1 mg/dL (8.4-10.2); Carbon Dioxide 26 mmol/L (22-29); Chloride 105 mmol/L (96-108); Creatinine Clr Calc Pharmacy 41.1; Estimated Glomerular Filt Rate > 60; Glucose Random 77 mg/dL (60-115); Potassium 3.9 mmol/L (3.3-5.1); Sodium 140 mmol/L (135-145); Total Protein 6.7 g/dL (6.5-8.0)
[2023-11-08 22:10] LABS: Erythrocyte Sedimentation Rate 12 MM/HR (0-20)
[2023-11-09 00:07] VITALS: BP 126/63; PULSE 78; RESP 16; TEMP 36.8; O2SAT 100
[2023-11-09 01:34] VITALS: BP 121/73; PULSE 75; RESP 16; TEMP 37; O2SAT 99
[2023-11-09 01:40] VITALS: BP 121/73; PULSE 75; RESP 16; TEMP 37; O2SAT 99
== END 2023-11-09 01:40 | disposition home or self-care (01) ==
PROVIDERS: Physician Assistant Medical; Emergency Provider Emergency Medicine; PCP Family Medicine
DX: M47.892 Other spondylosis, cervical region (principal); M54.2 Cervicalgia; Z79.899 Other long term (current) drug therapy
CPT/HCPCS: 36415; 72125; 80048; 80076; 85025; 85652; 86140; 99284

== ENCOUNTER 2023-11-14 07:20 | Outpatient (REF) | payer MEDICARE, OTHER, SELFPAY ==
--- NOTE | ~2023-11-14 | MM_ITS ---
EXAMINATION: MM SCREENING DIGITAL BREAST TOMOSYNTHESIS, BILATERAL CLINICAL INFORMATION: Screening. Asymptomatic. COMPARISON: Mammography: Comparison is made with available priors TECHNIQUE: Digital breast mammography with tomosynthesis is performed in both the craniocaudal and mediolateral oblique views along with computer-aided detection (CAD). FINDINGS: There are scattered areas of fibroglandular density (ACR BI-RADS breast composition Category b). Left: There are no significant masses, abnormal calcifications, or other abnormalities. Right: Focal asymmetry with questioned distortion upper outer breast anterior to middle depth. No suspicious calcifications or other abnormal findings. MM/MM tomosynthesis screening BI IMPRESSION: Additional imaging is recommended ASSESSMENT: BI-RADS BI-RADS 0 - Incomplete: Needs additional Imaging. RECOMMENDATION: 1. Additional views of the right breast 2. Targeted ultrasound if warranted after review of the additional views. 3. Radiology department staff will contact the patient for additional imaging. Additional Imaging required This examination should not preclude the clinical evaluation of a suspicious palpable abnormality. This patient's information was entered into a reminder system with a target due date for their next mammogram. Electronically signed by: Isabella Ventura DO 11/26/2023 12:38 PM EDT
== END 2023-11-14 07:21 | disposition home or self-care (01) ==
LOC: HO.MAMMO 07:20
PROVIDERS: PCP Family Medicine; Visit Provider Family Medicine
DX: Z12.31 Encounter for screening mammogram for malignant neoplasm of breast (principal)
CPT/HCPCS: 77063; 77067

== ENCOUNTER → 2023-11-14 07:30 | Outpatient (BNV) | payer MEDICARE, OTHER, SELFPAY | PROVIDERS: PCP Family Medicine; Visit Provider Internal Medicine | DX: Z12.31 Encounter for screening mammogram for malignant neoplasm of breast (principal) | CPT/HCPCS: 77063; 77067 ==

== ENCOUNTER 2023-12-03 08:18 | Outpatient (REF) | payer MEDICARE, OTHER, SELFPAY ==
--- NOTE | ~2023-12-03 | MM_ITS ---
EXAMINATION: MM DIAGNOSTIC DIGITAL BREAST TOMOSYNTHESIS, CLINICAL INFORMATION: Call back from screening for focal asymmetry. COMPARISON: Mammography: Prior available comparison images. TECHNIQUE: Digital breast tomosynthesis and 2-D is performed in both the craniocaudal and mediolateral oblique views along with computer-aided detection (CAD). FINDINGS: There are scattered areas of fibroglandular density (ACR BI-RADS breast composition Category b). Focal asymmetry in the upper central breast persists with associated architectural distortion on additional spot substances projections. There is a circumscribed oval mass in the upper outer breast anterior depth. There is a focal asymmetry in the upper outer breast posterior depth. No suspicious calcifications. Targeted color Doppler ultrasound in the right breast demonstrates a hypoechoic irregular shadowing solid mass at 11-12 o'clock 5 cm from the nipple which correlates with the focal asymmetry in the upper central breast with associated distortion and measures approximately 8 x 4 x 11 mm. There is an oval isoechoic solid mass at 11:00 2 cm from the nipple measuring 11 x 6 x 4 mm which correlates with the focal asymmetry in the upper outer breast anterior depth. Targeted ultrasound in the upper outer quadrant posterior depth demonstrates a hypoechoic oval circumscribed solid mass measuring 18 x 7 mm which correlates with the upper outer quadrant focal asymmetry posterior depth. Targeted color Doppler ultrasound in the right axilla demonstrates 2 prominent axillary lymph nodes with thickened cortices. MM/MM tomosynthesis added views R IMPRESSION: 1. Solid irregular mass at 11-12 o'clock 5 cm from the nipple which correlates with the focal asymmetry with associated architectural distortion upper outer breast on mammography. Recommend histology with ultrasound guided core needle biopsy at this time. The findings and recommendations were discussed with the patient the procedure will be scheduled. 2. Irregular enlarged right axillary lymph nodes with thickened cortex. Recommend ultrasound-guided core needle biopsy at this time. 3. Oval masses at 11:00 and upper outer quadrant posterior depth which correlate with focal asymmetries on mammography. Recommend ultrasound guided core needle biopsies at this time for confirmation. The findings and recommendations were discussed with the patient and the procedures will be scheduled. ASSESSMENT: BI-RADS BI-RADS 4 - Suspicious finding RECOMMENDATION: Biopsy recommended Results were provided to the patient at time of visit by the technologist. This patient's information was entered into a reminder system with a target due date for their next mammogram. Electronically signed by: Isabella Ventura DO 12/03/2023 01:00 PM EDT
== END 2023-12-03 08:19 | disposition home or self-care (01) ==
LOC: HO.MAMMO 08:18
PROVIDERS: PCP Family Medicine; Visit Provider Family Medicine
DX: R92.8 Other abnormal and inconclusive findings on diagnostic imaging of breast (principal)
CPT/HCPCS: 76642; 77061; 77065

== ENCOUNTER → 2023-12-03 08:30 | Outpatient (BNV) | payer MEDICARE, OTHER, SELFPAY | PROVIDERS: PCP Family Medicine; Visit Provider Internal Medicine | DX: N63.11 Unspecified lump in the right breast, upper outer quadrant (principal); N63.31 Unspecified lump in axillary tail of the right breast | CPT/HCPCS: 76642; 77065; G0279 ==

== ENCOUNTER 2023-12-15 07:46 | Outpatient (REF) | payer MEDICARE, OTHER, SELFPAY ==
--- NOTE | ~2023-12-15 | MM_ITS ---
PROCEDURE: US GUIDED BREAST BIOPSY, AND RIGHT AXILLA LYMPH NODE BIOPSY, RIGHT CLINICAL INFORMATION: -11:00 axis, 5 cm from the nipple, right breast hypoechoic irregular 11 x 6 x 4 mm lesion for biopsy, correlating with a focus of architectural distortion on mammography (unchanged in appearance when compared with exams dating to 2016, highly favoring a benign entity such as scarring). Abnormal right axillary lymph nodes on sonography, also recommended for biopsy, not previously imaged. -Original diagnostic ultrasound report dated 12/03/2023 recommended 2 additional sites right breast for biopsy, however on review of imaging, these have a classical appearance of fat necrosis, and have been previously imaged, and are unchanged. These are benign and no additional right breast biopsy is felt to be necessary. This was discussed with the patient before the procedure. COMPARISON: 11/30/2023, 11/14/2023, 11/07/2022, 11/05/2021, 10/21/2020, and exams dating back to 2013. PROCEDURAL DETAILS: The details of the procedure, as well as the risks, benefits, and alternatives to the procedure were explained to the patient in detail and all of her questions were answered, after which written informed consent was obtained. Site and side were confirmed. RIGHT BREAST: 11:00 axis: (Site A): Prior to the procedure, sonography revealed the vague hypoechoic and irregular 11 x 6 x 4 mm right breast abnormality at 11:00, 5 cm from the nipple. A time-out was performed, the lesion intended for biopsy was targeted, and the skin of the overlying right breast was then marked, prepped and draped in the usual sterile fashion. Using sonographic guidance, sterile technique, and 1% lidocaine without epinephrine for local anesthesia, multiple core biopsies were obtained through the targeted area with a 14G spring loaded InfoRemateera core biopsy device. There was real-time confirmation of appropriate needle passage. Sampling was documented. At the completion of tissue sampling, a single butterfly shaped metallic clip was deposited at the biopsy site. RIGHT AXILLA: Lymph node: (Site B): Prior to the procedure, sonography revealed an enlarged right low axillary lymph node. A time-out was performed, the lesion intended for biopsy was targeted, and the skin of the overlying right axilla was then marked, prepped and draped in the usual sterile fashion. Using sonographic guidance, sterile technique, and 1% lidocaine without epinephrine for local anesthesia, multiple core biopsies were obtained through the targeted area with a 14G spring loaded InfoRemateera core biopsy device. There was real-time confirmation of appropriate needle passage. Sampling was documented. At the completion of tissue sampling, a single open coil metallic clip was deposited at the biopsy site. There was no evidence of immediate complication. SPECIMEN: -3 well formed core samples were obtained from each site. -An additional core sample was obtained from the axillary lymph node for flow cytometry. DIGITAL POST-PROCEDURE MAMMOGRAPHY: Only a right cc view could be obtained, as the patient expressed vasovagal episode at the end of this obtaining this view, and had a syncopal episode. See below. Breast density: The tissue contains scattered areas of fibroglandular density. BI-RADS version 5, category B. There are no new mammographic findings demonstrated. The postprocedure 1 view CC 3-D tomographic digital mammogram reveals satisfactory and accurate positioning of the biopsy clip, approximately 6 mm posterior to the distortion. No hematoma present. The patient tolerated the procedure well and, after assuring adequate hemostasis, was undergoing post postprocedural mammographic views and experienced a syncopal episode from a vasovagal event. I assessed the patient immediately, who had stable vital signs, blood pressure 120/75, and a heart rate of 73 bpm. Patient denies pain in her head, neck, back, chest, abdomen, pelvis, or extremities. Despite this, patient was transported to the emergency room for more definitive care. Final pathology results are pending. MM/MM tomosynthesis diagnostic RT IMPRESSION: 1. No immediate complication from ultrasound-guided percutaneous biopsy right breast and right axillary lymph node. See above. 2. Ultrasound was used to localize and guide marker clip placement. 3. The one view ML direct digital postprocedure mammogram reveals satisfactory positioning of the biopsy clip. The correlating CC view could not be obtained due to a syncopal episode. 4. Final pathology results are pending. A separate report with final recommendations will be issued once these results are made available. Electronically signed by: Hamzah Downey MD 12/15/2023 11:41 AM [facility]
[2023-12-15] MEDS: Sodium Bicarbonate 8.4% 50 MEQ/50 ML VIAL SUBCUT (10:25)
== END 2023-12-15 07:47 | disposition home or self-care (01) ==
LOC: HO.MAMMO 07:46
PROVIDERS: Pathology Anatomic Pathology & Clinical Pathology; PCP Family Medicine; Visit Provider Family Medicine
DX: Z13.89 Encounter for screening for other disorder (principal)
CPT/HCPCS: 19083; 36415; 38505; 76942; 77061; 77065; 88184; 88185; 88305; 88341; 88342; 88360; A4648; C1894

== ENCOUNTER → 2023-12-15 08:00 | Outpatient (BNV) | payer MEDICARE, OTHER, SELFPAY | PROVIDERS: PCP Family Medicine; Visit Provider Radiology Diagnostic Radiology | DX: N63.15 Unspecified lump in the right breast, overlapping quadrants (principal); R59.0 Localized enlarged lymph nodes | CPT/HCPCS: 19083; 38505; 71275; 77065; G0279 ==

== ENCOUNTER 2023-12-15 10:15 | Emergency (ER) | payer MEDICARE, OTHER, SELFPAY ==
--- NOTE | ~2023-12-15 | XR_ITS ---
EXAMINATION: XR CHEST CLINICAL INFORMATION: Syncope COMPARISON: Chest x-ray March 28, 2019 TECHNIQUE: Portable view of the chest was obtained. FINDINGS: Cardiac silhouette is normal in size. The lungs are well aerated. There is no lobar consolidation. No pleural effusion or pneumothorax. Scoliotic and degenerative changes of the spine. XR/XR chest 1V IMPRESSION: No acute pulmonary pathology. Electronically signed by: Reji Bronson MD 12/15/2023 11:18 AM [facility] [place]
--- NOTE | ~2023-12-15 | CT_ITS ---
EXAMINATION: CT ANGIOGRAM CHEST CLINICAL INFORMATION: Syncope. Possible pulmonary embolism COMPARISON: None available. TECHNIQUE: Multiple axial images were obtained through the chest after the administration of 65 mL of Omnipaque 350 intravenous contrast without reported immediate complications. Extensive vascular post-processing including two-dimensional and three-dimensional reformatted images were created and reviewed on an independent workstation. This CT examination was performed using dose optimization techniques as appropriate, variously including the following: *Automated exposure control *Adjustment of mA and/or kV according to patient size (this includes techniques or standardized protocols for targeted exams where dose is matched to indication/reason for exam; i.e. extremities or head) *Use of iterative reconstruction technique DLP: 168 mGy-cm FINDINGS: No intraluminal filling defects within the main pulmonary artery or its main branches. No aneurysm or dissection, thoracic aorta. Bilateral pulmonary mosaic pattern. No consolidation, pleural effusion or pneumothorax. No bronchiectasis. No honeycombing. Respiratory where is patent. No pericardial effusion. Normal-sized heart. Multilevel thoracolumbar spondylosis with a S-shaped curvature of the thoracolumbar spine. Lymphadenopathy, right axilla. Nodular densities in the right breast tissue and questionable focal areas of subcutaneous emphysema. 1.4 cm hypodensity, right hepatic lobe. CT/CT angio chest PE protocol IMPRESSION: No acute pulmonary artery emboli. Mild interstitial edema in the correct clinical settings. Lymphadenopathy, right axilla. Underlying lesion right breast cannot be excluded. Multilevel thoracolumbar spondylosis. 1.4 cm hypodense lesion, right hepatic lobe statistically may correspond to a cyst versus hemangioma. Fleischner guidelines were followed. Electronically signed by: Diogo Rivera MD 12/15/2023 02:33 PM [facility]
[2023-12-15 10:21] VITALS: BP 116/73; BP 132/47; PULSE 73; PULSE 77; RESP 16; TEMP 36.4; O2SAT 98; BMI 20.7
--- NOTE | 2023-12-15 10:21 | ECG_ITS ---
Test Reason : SYNCOPE Blood Pressure : / mmHG Vent. Rate : 069 BPM Atrial Rate : 069 BPM P-R Int : 148 ms QRS Dur : 074 ms QT Int : 374 ms P-R-T Axes : 054 036 023 degrees QTc Int : 400 ms Normal sinus rhythm Normal ECG When compared with ECG of 01-JUN-2023 22:22, No significant change was found Referred By: Generic ED Physician Electronically Signed By:KEVIN STEPHENS MD
[2023-12-15 10:30] VITALS: O2SAT 98
[2023-12-15] MEDS: Acetaminophen 325 MG TABLET 650 MG PO (11:48)
[2023-12-15 11:49] LABS: MANUAL DIFF FLAG NO
--- NOTE | 2023-12-15 11:49 | PC.NURSE ---
medicated per the [facility] for headache, states that it is dull in nature and began after arriving. labs obtained and sent.
[2023-12-15 11:52] LABS: Basophils Percent Auto 0.7 % (0-2); Eosinophils Absolute Auto 0.1 X10*3/uL (0.0-0.4); Eosinophils Percent Auto 1.4 % (0-4); Hematocrit 38.1 % (37.0-47.0); Hemoglobin 12.6 g/dl (12.0-16.0); Imm Gran Abs Auto 0.01 X10*3/uL (0.00-0.03); Imm Gran Pct Auto 0.2 % (0.0-0.4); Lymphocytes Absolute Auto 0.6 X10*3/uL (1.2-4.9); Lymphocytes Percent Auto 14.3 % (20-40); Mean Corpuscular HGB Conc 33.1 g/dl (31.0-35.0); Mean Corpuscular Hemoglobin 28.8 pg (27.0-33.0); Mean Corpuscular Volume 87.2 fL (80.0-98.0); Mean Platelet Volume 8.8 fL (9.4-12.3); Monocytes Absolute Auto 0.3 X10*3/uL (0.1-1.2); Neutrophils Absolute Auto 3.2 x10*3/uL (2.0-8.3); Neutrophils Percent Auto 75.4 % (45-73); Platelet Count 195 X10*3/uL (160-400); Red Blood Count 4.37 X10*6/uL (4.20-5.50); Red Cell Distribution Width 13.1 % (11.0-16.0); White Blood Count 4.3 X10*3/uL (4.8-10.8)
[2023-12-15 12:14] VITALS: BP 140/54; PULSE 77; RESP 16; O2SAT 100
--- NOTE | 2023-12-15 12:21 | ED.GENADULT ---
HPI - General Adult General Chief complaint: Syncope Stated complaint: SYNCOPAL EPISODE PER EMS Time Seen by Provider: 12/15/23 12:20 History of Present Illness ED Provider: Dr. Lau HPI narrative: 73 y/o F patient; PMH osteoarthritis, depression, currently being evaluated for possible breast cancer; presents from [facility] with report of witnessed syncopal episode. The patient was seen passing out onto the ground with + head strike. She does not remember passing out. She states that morning she had walked 3 miles without difficulty. She had a biopsy of her right breast and right axilla lymph nodes this morning. She then stood up and walked to the mammogram table where she placed on breast on the table and then passed out. She denies: tongue bitting, generalized extremity shaking, incontinence of stool or urine. One prior syncopal episode a year ago - patient was in the shower when she passed out, she than sat up and passed out again. Related Data Home Medications ?Medication ?Instructions ?Recorded ?Confirmed gabapentin 100 mg capsule 100 mg PO BID 08/02/21 08/22/23 albuterol sulfate 90 mcg/actuation inhalation 08/22/23 08/22/23 aerosol inhaler atorvastatin 40 mg tablet 40 mg PO DAILY 08/22/23 08/22/23 Previous Rx's ?Medication ?Instructions ?Recorded aspirin 81 mg tablet,delayed 81 mg PO DAILY #30 tabs 06/02/23 release bupropion HCl 300 mg 24 hr tablet, 300 mg PO DAILY #90 tabs 08/22/23 extended release methocarbamol 500 mg tablet 500 mg PO TID PRN pain #15 tabs 11/09/23 methylprednisolone 4 mg tablets in 4 mg PO QAM #1 ea 11/09/23 a dose pack (Medrol (Esteban)) Allergies Allergy/AdvReac Type Severity Reaction Status Date / Time No Known Allergies Allergy Verified 12/15/23 10:21 [No Known Allergies*] Review of Systems Review of Systems: Yes all other systems are reviewed and are negative Neurologic: Denies Sensory deficit (Neuro) PMFSH Past Medical History Attestation statement: The following information was validated with the patient. 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 Physical Exam ED Vital Signs: Vital Signs - 24 hr 12/15/23 10:21 12/15/23 10:30 12/15/23 12:14 Temperature 97.6 F Pulse Rate 73 77 Respiratory Rate 16 16 Blood Pressure 132/47 L 140/54 H Pulse Oximetry 98 98 100 Oxygen Delivery Method Room Air Room Air Room Air BMI result Body Mass Index 20.7 Patient is afebrile and hemodynamically stable Const General: cooperative and no acute distress Orientation/consciousness: patient oriented x3 HENMT Head: Yes normal to inspection and Yes atraumatic Eyes General: appearance normal, both eyes and all related structures Pupils: Equal, round and reactive pupils present EOM: No Nystagmus present Neck Neck: Yes normal visual inspection, Yes full ROM, Yes supple and No tender Chest Chest palpation & inspection: normal inspection of the chest and normal palpation of entire chest wall Resp Effort & Inspection: normal respiratory effort and able to speak in complete sentences Auscultation: clear to auscultation bilaterally Cardio Rate: regular rate Rhythm: regular rhythm Peripheral pulses: Peripheral pulses 2+ throughout GI Inspection: Yes normal to inspection, No Abdominal wall edema and No distended Palpation (GI): Soft to palpation, not firm, nontender, no guarding and not rigid Auscultation: normal bowel sounds General: Yes no CVA tenderness Back/Spine/Pelvis Back: no CVA tenderness Neuro General: patient oriented x3 and gait normal Cranial nerves: Yes Equal, round and reactive pupils present and No Nystagmus present Motor exam (neuro): 5/5 motor strength present throughout Sensory Exam: No Sensory deficit (Neuro) Coordination: [id number] test normal and Normal rapid alternating movements of the distal upper extremity present (Neuro) Course Course Course Narrative: Patient is afebrile and hemodynamically stable. Will obtain EKG, CXR, and basic labs. Labs reviewed. No leukocytosis. Troponin negative. CXR unremarkable. EKG reassuring. With patient's ability to walk 3miles today, plus reassuring EKG/CXR/troponin - low suspicion for ACS. CXR without evidence of pneumonia, pneumothorax, pleural effusion, aortic dissection. I will order a d-dimer as patient is currently being evaluated for possible malignancy. Reevaluation(s) Reevaluation #1: D-dimer is markedly elevated - will obtain CTA Chest. CTA without evidence of pulmonary embolism. Patient's syncope is more consistent with vasovagal. She is neurologically intact and asymptomatic at this time. Ambulatory without difficulty. Plan: Discharge to home with PCP follow up Return precautions given Medications Administered Discontinued Medications Generic Name Dose Route Start Last Admin Trade Name Freq PRN Reason Stop Dose Admin Acetaminophen 650 mg 12/15/23 11:44 12/15/23 11:48 Acetaminophen 325 Mg Tablet PO 12/15/23 11:45 650 mg ONCE ONE Administration Iohexol 65 ml 12/15/23 13:46 12/15/23 13:46 Iohexol 350 Mg/Ml 100 Ml Infus..Btl IV 12/15/23 13:47 65 ml ONCE ONE Administration Medical Decision Making Lab Data 12/15/23 11:42 12/15/23 11:42 Labs: Lab Results 12/15/23 12/15/23 Range/Units 11:42 12:55 WBC 4.3 L (4.8-10.8) X10*3/uL RBC 4.37 (4.20-5.50) X10*6/uL Hgb 12.6 (12.0-16.0) g/dl Hct 38.1 (37.0-47.0) % MCV 87.2 (80.0-98.0) fL MCH 28.8 (27.0-33.0) pg MCHC 33.1 (31.0-35.0) g/dl RDW 13.1 (11.0-16.0) % Plt Count 195 (160-400) X10*3/uL MPV 8.8 L (9.4-12.3) fL Immature Gran % (Auto) 0.2 (0.0-0.4) % Neut % (Auto) 75.4 H (45-73) % Lymph % (Auto) 14.3 L (20-40) % Edmunds % (Auto) 8.0 (2-11) % Eos % (Auto) 1.4 (0-4) % Baso % (Auto) 0.7 (0-2) % Lymph # (Auto) 0.6 L (1.2-4.9) X10*3/uL Edmunds # (Auto) 0.3 (0.1-1.2) X10*3/uL Eos # (Auto) 0.1 (0.0-0.4) X10*3/uL Baso # (Auto) 0.0 (0.0-0.2) X10*3/uL Abs Immat Gran (auto) 0.01 (0.00-0.03) X10*3/uL Absolute Neuts (auto) 3.2 (2.0-8.3) x10*3/uL Absolute Nucleated RBC 0.000 (0.0-0.012) X10*3/uL Nucleated RBC % (auto) 0.0 (0.0-0.2) /100WBC D-Dimer High Sensitivty 1963 NG/ML Sodium 139 (135-145) mmol/L Potassium 4.3 (3.3-5.1) mmol/L Chloride 106 (96-108) mmol/L Carbon Dioxide 24 (22-29) mmol/L Anion Gap 13 (12-20) BUN 16 (9-16) mg/dL Creatinine 0.78 (0.5-1.4) mg/dL Estim Creat Clear Calc 45.4 Estimated GFR > 60 Random Glucose 92 (60-115) mg/dL Calcium 9.6 (8.4-10.2) mg/dL Total Bilirubin 0.3 (0.0-1.0) mg/dL AST 27 (5-31) U/L ALT 18 (0-31) U/L Alkaline Phosphatase 83 (39-117) U/L Troponin I High Sens < 2.7 (<3.5-17.0) ng/L Total Protein 6.9 (6.5-8.0) g/dL Albumin 4.2 (3.5-5.0) g/dL Independent Interpretation I performed an independent interpretation of an: EKG Interpretation: NSR 69BPM without ischemic changes, normal intervals Radiology Impression Discussion of test interpretation with radiology: I have reviewed the radiologist's reading. Radiologist Impression: EXAMINATION: XR CHEST CLINICAL INFORMATION: Syncope COMPARISON: Chest x-ray March 28, 2019 TECHNIQUE: Portable view of the chest was obtained. FINDINGS: Cardiac silhouette is normal in size. The lungs are well aerated. There is no lobar consolidation. No pleural effusion or pneumothorax. Scoliotic and degenerative changes of the spine. XR/XR chest 1V IMPRESSION: No acute pulmonary pathology. Electronically signed by: Reji Bronson MD 12/15/2023 11:18 AM EST EXAMINATION: CT ANGIOGRAM CHEST CLINICAL INFORMATION: Syncope. Possible pulmonary embolism COMPARISON: None available. TECHNIQUE: Multiple axial images were obtained through the chest after the administration of 65 mL of Omnipaque 350 intravenous contrast without reported immediate complications. Extensive vascular post-processing including two-dimensional and three-dimensional reformatted images were created and reviewed on an independent workstation. This CT examination was performed using dose optimization techniques as appropriate, variously including the following: *Automated exposure control *Adjustment of mA and/or kV according to patient size (this includes techniques or standardized protocols for targeted exams where dose is matched to indication/reason for exam; i.e. extremities or head) *Use of iterative reconstruction technique DLP: 168 mGy-cm FINDINGS: No intraluminal filling defects within the main pulmonary artery or its main branches. No aneurysm or dissection, thoracic aorta. Bilateral pulmonary mosaic pattern. No consolidation, pleural effusion or pneumothorax. No bronchiectasis. No honeycombing. Respiratory where is patent. No pericardial effusion. Normal-sized heart. Multilevel thoracolumbar spondylosis with a S-shaped curvature of the thoracolumbar spine. Lymphadenopathy, right axilla. Nodular densities in the right breast tissue and questionable focal areas of subcutaneous emphysema. 1.4 cm hypodensity, right hepatic lobe. CT/CT angio chest PE protocol IMPRESSION: No acute pulmonary artery emboli. Mild interstitial edema in the correct clinical settings. Lymphadenopathy, right axilla. Underlying lesion right breast cannot be excluded. Multilevel thoracolumbar spondylosis. 1.4 cm hypodense lesion, right hepatic lobe statistically may correspond to a cyst versus hemangioma. Fleischner guidelines were followed. Electronically signed by: Diogo Rivera MD 12/15/2023 02:33 PM EST Discharge Plan Discharge Clinical Impression: Syncope Patient Disposition: Home, Self-Care Instructions: Syncope (DC) Additional Instructions: As we discussed, you were seen today for passing out. Your emergency department work up was reassuring - your CXR, EKG, labs, and CTA chest were reassuring. Please follow up with your PCP within the next 1 day to discuss your recent emergency department visit and for re-evaluation. Return immediately to the emergency department for: Further episodes of passing out Chest pain Difficulty breathing Prescriptions: No Action aspirin 81 mg tablet,delayed release (DR/EC) 81 mg PO DAILY Qty: 30 0RF methylprednisolone [Medrol (Esteban)] 4 mg tablets,dose pack 4 mg PO QAM Qty: 1 0RF Rx Instructions: Use per package instructions methocarbamol 500 mg tablet 500 mg PO TID PRN (Reason: pain) Qty: 15 0RF gabapentin 100 mg capsule 100 mg PO BID atorvastatin 40 mg tablet 40 mg PO DAILY albuterol sulfate 90 mcg/actuation HFA aerosol inhaler inhalation bupropion HCl 300 mg tablet extended release 24 hr 300 mg PO DAILY Qty: 90 2RF Print Language: [place]
[2023-12-15 12:27] LABS: Troponin-I High Sensitivity < 2.7 ng/L (<3.5-17.0)
[2023-12-15 12:29] LABS: Alanine Aminotransferase 18 U/L (0-31); Albumin Level 4.2 g/dL (3.5-5.0); Alkaline Phosphatase 83 U/L (39-117); Anion Gap 13 (12-20); Aspartate Amino Transferase 27 U/L (5-31); Bilirubin Total 0.3 mg/dL (0.0-1.0); Blood Urea Nitrogen 16 mg/dL (9-16); Calcium 9.6 mg/dL (8.4-10.2); Carbon Dioxide 24 mmol/L (22-29); Chloride 106 mmol/L (96-108); Creatinine Clr Calc Pharmacy 45.4; Estimated Glomerular Filt Rate > 60; Glucose Random 92 mg/dL (60-115); Potassium 4.3 mmol/L (3.3-5.1); Sodium 139 mmol/L (135-145); Total Protein 6.9 g/dL (6.5-8.0)
[2023-12-15 13:18] LABS: D Dimer High Sensitivity 1963 NG/ML
[2023-12-15] MEDS: iohexoL 350 MG/ML 100 ML INFUS..BTL 65 ML IV (13:46)
[2023-12-15 15:02] VITALS: BP 139/82; PULSE 83; RESP 16; TEMP 36.4; O2SAT 96
== END 2023-12-15 15:03 | disposition home or self-care (01) ==
PROVIDERS: Emergency Provider Emergency Medicine; PCP Family Medicine
DX: S09.90XA Unspecified injury of head, initial encounter (principal); W19.XXXA Unspecified fall, initial encounter; Y93.9 Activity, unspecified; Y92.9 Unspecified place or not applicable; Y99.9 Unspecified external cause status; R55 Syncope and collapse; C50.911 Malignant neoplasm of unspecified site of right female breast; N63.15 Unspecified lump in the right breast, overlapping quadrants; Z17.0 Estrogen receptor positive status [ER+]; Z17.32 Human epidermal growth factor receptor 2 negative status
CPT/HCPCS: 19083; 36415; 38505; 71045; 71275; 76942; 77061; 77065; 80053; 84484; 85025; 85379; 88184; 88185; 88305; 88341; 88342; 88360; 93005; 99284; 99285; A4648; C1894; Q9967

== ENCOUNTER → 2023-12-15 10:21 | Outpatient (BNV) | payer MEDICARE, OTHER, SELFPAY | PROVIDERS: PCP Family Medicine; Visit Provider Internal Medicine Cardiovascular Disease | DX: R55 Syncope and collapse (principal) | CPT/HCPCS: 93010 ==

== ENCOUNTER 2024-06-11 20:37 | Emergency (ER) | payer MEDICARE, OTHER, SELFPAY ==
--- NOTE | ~2024-06-11 | CT_ITS ---
CLINICAL HISTORY: Right lower quadrant pain? Appy CT abdomen and pelvis with contrast Comparison: No prior abdomen imaging available at this time. Correlation is made with chest CT from 12/15/2023 4 liver lesion comparison. Findings: Mild bibasilar atelectasis and scarring. 1.1 cm lesion in the left lobe of the liver (previously 1.2 cm). Mild fat deposition of the liver. Gallbladder is unremarkable for CT. Mild/borderline bilateral adrenal hyperplasia. The spleen is nonenlarged. No suspicious features of the cystic lesions in the kidneys. Mild prominence of the right renal pelvis. No hydronephrosis. Pancreas is unremarkable. Small mesenteric lymph nodes are nonspecific and may be reactive. No small bowel obstruction. Severe stool burden is present, including in the cecum and including in the distended rectum. Wall thickening of the large intestine is nonspecific, including rectum. Appendicolith noted. No additional findings of acute appendicitis with the imaged appendix measuring at the upper limits of normal. Mild free fluid in the abdomen pelvis nonspecific. Uterus deviates to the right. Mixed densities of the uterus likely due to fibroids. No adnexal soft tissue mass by CT. Mild-moderate wall thickening of the urinary bladder is nonspecific. Degenerative disc changes include vacuum disc phenomenon, disc height loss, and endplate hypertrophy. Facet arthropathy is multifocal. Multiple Schmorl's nodes noted. Osteoarthritis involves both hips, pubic symphysis, and SI joints. IMPRESSION: 1. Severe stool burden, including in the distended rectum, or wall thickening is noted. 2. No small bowel obstruction. 3. Appendicolith without additional findings of acute appendicitis. 4. No significant change in small liver lesion compared to 12/15/2023. 5. Mild-moderate wall thickening of the urinary bladder. This document has been electronically signed by: Emre Sanchez MD on 06/12/2024 00:42:13
[2024-06-11 20:40] VITALS: BP 140/70; PULSE 88; O2SAT 99
[2024-06-11 20:50] VITALS: BP 134/74; PULSE 80; RESP 18; TEMP 36.4; O2SAT 98; BMI 20.9
--- NOTE | 2024-06-11 20:51 | ED_ITS ---
HPI - Abdominal Pain General Chief Complaint: Abdominal Pain Stated Complaint: Lower Right abd Pain Time Seen by Provider: 06/11/24 23:22 Source: patient Mode of arrival: ambulatory Limitations: no limitations History of Present Illness ED Provider: HPI narrative: Patient no significant abdominal complaints in the past noticed sudden onset of pain in the right lower abdomen started 18:00 followed by 4 loose bowels associated with nausea pain increases on ambulation no fever no chills no history of kidney stone no history of urinary complaints no history of similar pain in the past no fever no chills patient does have history of constipation and and she took MiraLax today prior to having loose bowels Related Data Home Medications ?Medication ?Instructions ?Recorded ?Confirmed gabapentin 100 mg capsule 100 mg PO BID 08/02/21 08/22/23 albuterol sulfate 90 mcg/actuation inhalation 08/22/23 08/22/23 aerosol inhaler atorvastatin 40 mg tablet 40 mg PO DAILY 08/22/23 08/22/23 Previous Rx's ?Medication ?Instructions ?Recorded aspirin 81 mg tablet,delayed 81 mg PO DAILY #30 tabs 06/02/23 release bupropion HCl 300 mg 24 hr tablet, 300 mg PO DAILY #90 tabs 08/22/23 extended release methocarbamol 500 mg tablet 500 mg PO TID PRN pain #15 tabs 11/09/23 methylprednisolone 4 mg tablets in 4 mg PO QAM #1 ea 11/09/23 a dose pack (Medrol (Esteban)) polyethylene glycol 3350 17 17 g PO DAILY #510 grams 06/12/24 gram/dose oral powder (Miralax) sennosides 8.6 mg tablet (Senna 8.6 mg PO BEDTIME PRN constipation 06/12/24 Laxative) #30 tabs Allergies Allergy/AdvReac Type Severity Reaction Status Date / Time No Known Allergies Allergy Verified 06/11/24 20:52 [No Known Allergies*] Review of Systems Review of Systems Yes all other systems are reviewed and are negative PMFSH Past Medical History Medical History Major depression in complete remission PMR (polymyalgia rheumatica) Osteoarthritis Social History Social History Patient Tobacco Use Status: Never used Tobacco Smoked in Last 30 Days: Yes Use of substances other than those prescribed or required for medical reasons: No Advance Directives: No Advance Directives Information Provided: No Do you have a plan to hurt others: No Plan 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 Oriented X3. No acute distress. Eyes: No pallor or icterus ENT: Pharynx normal. Oral Mucosa moist Neck: Normal inspection. Neck supple. CVS: Normal heart rate and rhythm. Pulses normal. Respiratory: No respiratory distress. Equal air entry bilateral, no wheezing/rales/rhonchi Abdomen: Soft and deep tenderness right lower tenderness. Bowel sounds are present, no mass palpable, no CVA tenderness Skin: Skin warm and dry. Normal skin color. Normal skin turgor. Extremities: No lower extremity edema. No calf tenderness Neuro: Oriented X 3. No motor deficit. Course Course Course Narrative: This is an RME performed by Nicholas Morrow CNP: Additional HPI, ROS, PE not included below will be deferred to primary provider. Patient is a 74-year-old female who presents emergency department via EMS for evaluation of right lower quadrant abdominal pain radiating to the bilateral lower extremities, onset 4 hours ago nature. Denies associated nausea, vomiting, diarrhea, symptoms. Denies any injury. Plan: Serum labs, urinalysis Medical Decision Making Medical Decision Making [facility] Narrative: Patient with right lower quadrant pain with normal WBC count will do CT scan to rule out appy Patient's CT scan negative for acute appendicitis shows severe stool burden patient does have history of constipation and take MiraLax off and on which she took today and had loose bowels Differential Diagnosis Differential Diagnoses: The differential diagnosis associated with the presentation includes Appendicitis/diverticulitis/constipation/kidney stone Lab Data [facility] Lab Attestation statement: I reviewed the patient's lab results. 06/11/24 21:07 06/11/24 21:07 Labs: Lab Results 06/11/24 06/11/24 Range/Units 21:07 23:48 WBC 6.5 (4.8-10.8) X10*3/uL RBC 3.96 L (4.20-5.50) X10*6/uL Hgb 11.4 L (12.0-16.0) g/dl Hct 33.9 L (37.0-47.0) % MCV 85.6 (80.0-98.0) fL MCH 28.8 (27.0-33.0) pg MCHC 33.6 (31.0-35.0) g/dl RDW 13.1 (11.0-16.0) % Plt Count 180 (160-400) X10*3/uL MPV 8.8 L (9.4-12.3) fL Immature Gran % (Auto) 0.5 H (0.0-0.4) % Neut % (Auto) 83.0 H (45-73) % Lymph % (Auto) 6.8 L (20-40) % [place] % (Auto) 7.4 (2-11) % Eos % (Auto) 2.0 (0-4) % Baso % (Auto) 0.3 (0-2) % Lymph # (Auto) 0.4 L (1.2-4.9) X10*3/uL [place] # (Auto) 0.5 (0.1-1.2) X10*3/uL Eos # (Auto) 0.1 (0.0-0.4) X10*3/uL Baso # (Auto) 0.0 (0.0-0.2) X10*3/uL Abs Immat Gran (auto) 0.03 (0.00-0.03) X10*3/uL Absolute Neuts (auto) 5.4 (2.0-8.3) x10*3/uL Absolute Nucleated RBC 0.000 (0.0-0.012) X10*3/uL Nucleated RBC % (auto) 0.0 (0.0-0.2) /100WBC Sodium 135 (135-145) mmol/L Potassium 4.6 (3.3-5.1) mmol/L Chloride 101 (96-108) mmol/L Carbon Dioxide 24 (22-29) mmol/L Anion Gap 15 (12-20) BUN 26 H (9-16) mg/dL Creatinine 0.82 (0.5-1.4) mg/dL Estim Creat Clear Calc 42.5 Estimated GFR > 60 Random Glucose 140 H (60-115) mg/dL Lactic Acid 1.3 (0.5-2.0) mmol/L Calcium 9.0 D (8.4-10.2) mg/dL Total Bilirubin 0.2 (0.0-1.0) mg/dL AST 35 H (5-31) U/L ALT 28 (0-31) U/L Alkaline Phosphatase 84 (39-117) U/L Total Protein 6.4 L (6.5-8.0) g/dL Albumin 4.0 (3.5-5.0) g/dL Lipase 20 (8-78) U/L Independent Interpretation I performed an independent interpretation of an: CT Scan Radiology Impression Discussion of test interpretation with radiology: I have reviewed the radiologist's reading. Radiologist Impression: 1. Severe stool burden, including in the distended rectum, or wall thickening is noted. 2. No small bowel obstruction. 3. Appendicolith without additional findings of acute appendicitis. 4. No significant change in small liver lesion compared to 12/15/2023. 5. Mild-moderate wall thickening of the urinary bladder. This document has been electronically signed by: Emre Sanchez MD on 06/12/2024 00:42:13 Medications Administered Discontinued Medications Generic Name Dose Route Start Last Admin Trade Name Freq PRN Reason Stop Dose Admin Sodium Chloride 1,000 mls @ 999 mls/hr 06/11/24 23:39 06/11/24 23:53 Ns IV 06/12/24 00:39 999 mls/hr .Q1H1M ONE Administration Iohexol 85 ml 06/12/24 00:10 06/12/24 00:10 Iohexol 350 Mg/Ml 100 Ml Infus..Btl IV 06/12/24 00:11 85 ml ONCE ONE Administration Magnesium Hydroxide 30 ml 06/12/24 01:15 06/12/24 01:18 Milk Of Magnesia 30 Ml Oral.Susp PO 06/12/24 01:16 30 ml ONCE ONE Administration Morphine Sulfate 4 mg 06/11/24 23:40 06/11/24 23:52 Morphine Sulfate 4 Mg/Ml Cartridge IVPUSH 06/11/24 23:41 4 mg ONCE ONE Administration Protocol Ondansetron HCl 4 mg 06/11/24 23:39 06/11/24 23:52 Ondansetron Hcl 4 Mg/2 Ml Vial IVPUSH 06/11/24 23:40 4 mg ONCE ONE Administration Discharge Plan Discharge Clinical Impression: Abdominal pain, Constipation Patient Disposition: Home, Self-Care Instructions: Constipation (ED), High Fiber Diet (ED), Abdominal Pain (ED) Additional Instructions: Your abdominal pain is likely from severe constipation Drink plenty of fluids have more fibers Take MiraLax daily You may add senna daily for constipation Follow with the PCP if not better Prescriptions: New polyethylene glycol 3350 [Miralax] 17 gram/dose powder 17 g PO DAILY Qty: 510 0RF sennosides [Senna Laxative] 8.6 mg tablet 8.6 mg PO BEDTIME PRN (Reason: constipation) Qty: 30 0RF No Action aspirin 81 mg tablet,delayed release (DR/EC) 81 mg PO DAILY Qty: 30 0RF methylprednisolone [Medrol (Esteban)] 4 mg tablets,dose pack 4 mg PO QAM Qty: 1 0RF Rx Instructions: Use per package instructions methocarbamol 500 mg tablet 500 mg PO TID PRN (Reason: pain) Qty: 15 0RF gabapentin 100 mg capsule 100 mg PO BID atorvastatin 40 mg tablet 40 mg PO DAILY albuterol sulfate 90 mcg/actuation HFA aerosol inhaler inhalation bupropion HCl 300 mg tablet extended release 24 hr 300 mg PO DAILY Qty: 90 2RF Print Language: Ethiopian
[2024-06-11 21:11] LABS: MANUAL DIFF FLAG NO
[2024-06-11 21:25] LABS: Alanine Aminotransferase 28 U/L (0-31); Alkaline Phosphatase 84 U/L (39-117); Anion Gap 15 (12-20); Aspartate Amino Transferase 35 U/L (5-31); Bilirubin Total 0.2 mg/dL (0.0-1.0); Blood Urea Nitrogen 26 mg/dL (9-16); Carbon Dioxide 24 mmol/L (22-29); Chloride 101 mmol/L (96-108); Creatinine Clr Calc Pharmacy 42.5; Estimated Glomerular Filt Rate > 60; Glucose Random 140 mg/dL (60-115); Lipase 20 U/L (8-78); Potassium 4.6 mmol/L (3.3-5.1); Sodium 135 mmol/L (135-145); Total Protein 6.4 g/dL (6.5-8.0)
[2024-06-11 21:29] LABS: Basophils Percent Auto 0.3 % (0-2); Eosinophils Absolute Auto 0.1 X10*3/uL (0.0-0.4); Hematocrit 33.9 % (37.0-47.0); Hemoglobin 11.4 g/dl (12.0-16.0); Imm Gran Abs Auto 0.03 X10*3/uL (0.00-0.03); Imm Gran Pct Auto 0.5 % (0.0-0.4); Lymphocytes Absolute Auto 0.4 X10*3/uL (1.2-4.9); Lymphocytes Percent Auto 6.8 % (20-40); Mean Corpuscular HGB Conc 33.6 g/dl (31.0-35.0); Mean Corpuscular Hemoglobin 28.8 pg (27.0-33.0); Mean Corpuscular Volume 85.6 fL (80.0-98.0); Mean Platelet Volume 8.8 fL (9.4-12.3); Monocytes Absolute Auto 0.5 X10*3/uL (0.1-1.2); Monocytes Percent Auto 7.4 % (2-11); Neutrophils Absolute Auto 5.4 x10*3/uL (2.0-8.3); Platelet Count 180 X10*3/uL (160-400); Red Blood Count 3.96 X10*6/uL (4.20-5.50); Red Cell Distribution Width 13.1 % (11.0-16.0); White Blood Count 6.5 X10*3/uL (4.8-10.8)
[2024-06-11 23:39] VITALS: BP 158/83; PULSE 81; RESP 16; O2SAT 99
[2024-06-11] MEDS: Morphine Sulfate 4 MG/ML CARTRIDGE IVPUSH (23:52)
[2024-06-11] MEDS: ondansetron HCL 4 MG/2 ML VIAL IVPUSH (23:52)
[2024-06-11] MEDS: 0.9 % Sodium Chloride 1,000 ML 999 ML IV (23:53)
[2024-06-12 00:08] LABS: Lactic Acid 1.3 mmol/L (0.5-2.0)
[2024-06-12] MEDS: iohexoL 350 MG/ML 100 ML INFUS..BTL 85 ML IV (00:10)
[2024-06-12 00:26] VITALS: BP 146/83; PULSE 83; RESP 16; TEMP 36.6; O2SAT 97
[2024-06-12 01:12] VITALS: BP 144/82; PULSE 88; RESP 16; TEMP 36.8; O2SAT 97
[2024-06-12] MEDS: Milk of Magnesia 30 ML ORAL.SUSP PO (01:18)
[2024-06-12 01:40] VITALS: BP 144/82; PULSE 88; RESP 16; TEMP 36.8; O2SAT 97
== END 2024-06-12 01:56 | disposition home or self-care (01) ==
PROVIDERS: Nurse Practitioner Family; Emergency Provider Internal Medicine; PCP Family Medicine
DX: K59.00 Constipation, unspecified (principal); R10.9 Unspecified abdominal pain
CPT/HCPCS: 36415; 74177; 80053; 83605; 83690; 85025; 96361; 96374; 96375; 99284; J2270; J2405; Q9967

== ENCOUNTER → 2024-06-11 23:39 | Outpatient (BNV) | payer MEDICARE, OTHER, SELFPAY | PROVIDERS: Emergency Provider Internal Medicine; PCP Family Medicine; Visit Provider Radiology Neuroradiology | DX: R10.31 Right lower quadrant pain (principal) | CPT/HCPCS: 74177 ==

== ENCOUNTER 2024-11-10 11:17 | Outpatient (REF) | payer MEDICARE, OTHER, SELFPAY ==
--- NOTE | ~2024-11-10 | MM_ITS ---
EXAMINATION: MM DIAGNOSTIC DIGITAL BREAST TOMOSYNTHESIS, BILATERAL CLINICAL INFORMATION: History of right breast cancer 2011 status post lumpectomy. COMPARISON: Mammography: Comparison is made with relevant prior exams. TECHNIQUE: Digital breast mammography with tomosynthesis is performed in both the craniocaudal and mediolateral oblique views along with computer-aided detection (CAD). FINDINGS: There are scattered areas of fibroglandular density. Right post lumpectomy changes. There are no significant masses, abnormal calcifications, or other abnormalities. Results are provided to the patient at time of visit by the technologist. MM/MM tomosynthesis diagnostic BI IMPRESSION: There are no significant changes from prior study. ASSESSMENT: BI-RADS Category 2: Benign RECOMMENDATION: 1 year F/U This patient's information was entered into a reminder system with a target due date for their next mammogram. Electronically signed by: Isabella Ventura DO 11/10/2024 12:04 PM EDT
--- OUTSIDE RECORDS SUMMARY | 2024-11-10 12:55 | XMS_ITS | Encounter Summary ---
Author Organization [facility] Address [address] [place] [address] Care Team Providers Care Poultry Dresser Name Role Phone Anais Turk MD Primary Care Pr ovider Encounter Details Date Type Department Care Team (Late st Contact Info) Description 01/06/2024 Lab Requisition [facility] Main Lab [address] [place] [phone] Leticia Lynn MD [address] [place] [phone] Unspecified lump in the right breast, unspecified quadrant Social History Tobacco Use Types Packs/Day Years Used Date Smoking Tobacco: Never Smokeless Tobacco: Never Alcohol Use Standard Drinks/Week Comments Yes 0 (1 standard drink = 0.6 oz pur e alcohol) Comments No Sex and Gender Information Value Date Recorded Sex Assigned at Female 02/19/2024 9:23 AM EST Legal Sex Female 10:35 AM EST Gender Identity Female 02/19/2024 9:23 AM EST Sexual Orientation Straight 02/19/2024 9: 23 AM EST documented as of this encounter Plan of Treatment Upcoming Encounters Date Type Department Care Team (Late st Contact Info) Description 12/03/2024 2:20 PM EDT Office Visit Breast Surgery - [place] [address] [place] [phone] Leticia Lynn MD [address] [place] [phone] 12/22/2024 9:00 AM EST Office Visit [facility] [place] [address] [place] [phone] London Gasca MD [address] [place] [phone] 12/22/2024 9:30 AM EST Appointment [facility] [place] [address] [place] [phone] 02/21/2025 11:00 AM EST Office Visit [facility] [address] [place] [address] Anais Turk MD [address] [place] [address] documented as of this encounter Procedures Procedure Name Priority Date/Time Associated Diagnosis Comments AP OUTSIDE CONSULT Routine 12/15/2023 12 :00 AM EST Unspecified lump in the right breast, unspecified quadrant documented in this encounter Results * Anatomic pathology outside consult (12/15/2023 12:00 AM EST) Final Diagnosis Consult materials received from [facility], [place], [place], on 01/06/2024. A. Breast, right, 12 o'clock, biopsy ([id number]; originally obtained 12/15/2023): Invasive mammary carcinoma with lobular features, histologic grade 1, largest linear dimension: 7 mm. Background lobular neoplasia (atypical lobular hyperplasia/ALH). See note B. Lymph node, right axilla-biopsy: Adipose and fibrovascular tissue only; no lymph node sampling present. Note: Per report, semiquantitative immunohistochemical stains were performed, results as follows: Estrogen Receptor: Positive (100%, 3+) Progesterone Receptor: Low positive (10%, 1-2+) HER2: Negative (0) Ki-67: Low (5%) Also per report, flow cytometry performed on the right axillary lymph node show a nonspecific T-cell dominant profile with elevated CD4: CD8 ratio . The above diagnosis is in agreement with that rendered at outside originating institution, and is based upon review of provided slides, as well as the original pathology report. This case was reviewed at intradepartmental conference on 01/06/2024; the above diagnosis represents the consensus opinion. 01/06/2024 2:36 PM EST [facility] Microscopic Description Received are 4H and E slides, labeled [id number] (A and B L1, L2). Pictures of part A were taken. 01/06/2024 2:36 PM EST [facility] Disclaimer The technical components of this case were performed at [address] [address] CLIA # [id number] 01/06/2024 2:36 PM EST [facility] Tissue Right breast structure / Unknown 12/15/2023 01/06/2024 11:24 AM EST us Leticia Lynn MD LAB PATHOLOGY ORDERABLES Marjorie gonzalez Result [facility] [address] [place] [phone], documented in this encounter Visit Diagnoses Diagnosis Unspecified lump in the right breast, unspecified quadrant documented in this encounter Care Teams Poultry Dresser Relationship Specialty Start Date End Date Anais Turk MD [address] [place] [phone] PCP - General Internal Medicine 01/23/24 documented as of this encounter
--- OUTSIDE RECORDS SUMMARY | 2024-11-10 12:55 | XMS_ITS ---
Author Organization [facility] [address] [place] [address] [place] [phone] Phone Care Team Providers Care Cilnical Scientist Name Role Phone Anais Turk MD Primary Care Pr ovider Active Problems Problem Noted Date Diagnosed Date Personal history of transien t ischemic attack (TIA), and cerebral infarction without residual deficits 10/22/2024 Assessment & Plan (10/22/2024 9:52 AM EDT): continue aspirin and statin Orders: atorvastatin (LIPITOR) 40 mg tablet; Take 1 tablet (40 mg total) by mouth at bedtime. aspirin 81 mg EC tablet; Take 1 tablet (81 mg total) by mouth 1 (one) time each day. Aromatase inhibitor use 04/21/2024 Aromatase inhibitor use 04/21/2024 Cervical stenosis of spinal canal 01/29/2024 Assessment & Plan (10/22/2024 9:52 AM EDT): continue gabapentin which is effective Orders: gabapentin (NEURONTIN) 100 mg capsule; Take 2 capsules (200 mg total) by mouth 1 (one) time each day. Assessment & Plan (04/05/2024 5:42 PM EST): Well-controlled. Continue gabapentin 200 mg daily Orders: gabapentin (NEURONTIN) 100 mg capsule; Take 2 capsules (200 mg total) by mouth 1 (one) time each day. Osteoarthritis of cervical spine with myelopathy 01/29/2024 Assessment & Plan (10/22/2024 9:52 AM EDT): Continue gabpaentin Orders: gabapentin (NEURONTIN) 100 mg capsule; Take 2 capsules (200 mg total) by mouth 1 (one) time each day. Assessment & Plan (04/05/2024 5:42 PM EST): Orders: gabapentin (NEURONTIN) 100 mg capsule; Take 2 capsules (200 mg total) by mouth 1 (one) time each day. Localized enlarged lymph nodes 01/23/2024 Invasive lobular carcinoma o f right breast in female (CMS/HCC V24, CMS/HCC V28) 12/19/2023 Cancer Staging:Clinical:Stage IA(cT1c, cN0, cM0, G1, ER+, KY+, HER2-) - Signed by London Gasca MD on 01/21/2024 Overview (12/19/2023): invasive lobular carcinoma, MSBR grade 2. Right axilla lymph node showed nonspecific findings of increased CD4: CD8 of uncertain significance, consider excisional biopsy if there is a concern for lymphoproliferative disorder. ER positive( 100%), KY positive (10% of tumor cells), Her2 negative Assessment & Plan (10/22/2024 9:52 AM EDT): Continue anastrozole daily Assessment & Plan (04/05/2024 5:42 PM EST): Continue follow-up with breast surgery. She is pending #4 more radiation therapy sessions. Continue follow-up with oncology and anastrozole 1 mg daily Prediabetes 09/25/2023 Assessment & Plan (10/22/2024 9:52 AM EDT): Continue lifestyle management Orders: Hemoglobin A1c; Future Assessment & Plan (04/05/2024 5:42 PM EST): Well-controlled. Her last A1c was 5.3 in January Lung nodules 09/22/2023 Overview (11/28/2023): Last Assessment & Plan: 73-year-old woman with groundglass nodule at the apex of the right upper lobe that is stable when compared to 7 months prior. I had a discussion with her about the findings on the CAT scan in about pulmonary nodules in general and how their size, shape, and globe changer time affect her level of suspicion for malignancy. The persistence and appearance of this nodule do make me suspicious that this is a lipidic type malignancy or even minimally invasive but as I explained to her these are typically very indolent and slow-moving. I did discuss with her the diagnosis, staging, and treatment of lung cancer. We also discussed options of continued observation versus needle biopsy versus surgical wedge resection possible lobectomy. After our discussion and I do think quite reasonably she opted for continued observation and the plan then will be for a 1 year follow-up CT scan of the chest and a visit with me in the office after that. Assessment & Plan (10/22/2024 9:52 AM EDT): Up to date with LDCT. Continue yearly thoracic surgery follow up Assessment & Plan (10/18/2024 1:34 PM EDT): Ms. Arias is a 73 y.o. female who was discovered to have a groundglass nodule at the apex of the right upper lobe in January 2023 The patient's most recent surveillance chest CT scan performed on October 07, 2024 shows stable appearance of the nodule noted previously. She has no concerning pulmonary or thoracic adenopathy. We will continue with routine chest CT in one year, to be done September 2025. The patient will have a follow up after the scan to go over results and to have a physical exam. She is instructed to call with any questions or concerns prior to this time. Carotid artery stenosis 06/12/2023 Overview (11/28/2023): BL 0-49% stenosis. Last Assessment & Plan: Referred to vascular surgery Assessment & Plan (10/22/2024 9:52 AM EDT): continue aspirin and statin Orders: atorvastatin (LIPITOR) 40 mg tablet; Take 1 tablet (40 mg total) by mouth at bedtime. aspirin 81 mg EC tablet; Take 1 tablet (81 mg total) by mouth 1 (one) time each day. Assessment & Plan (04/05/2024 5:42 PM EST): Continue aspirin daily and statin Chronic leukopenia 06/10/2023 Degenerative joint disease of hand 04/02/2022 Overview (11/28/2023): 04/02/22 Multisite degenerative and erosive changes as detailed, more prominent in the right hand. Chronic mastoiditis, bilateral 10/18/2020 Overview (11/28/2023): Dr. Espinal, no need for future intervention CTS (carpal tunnel syndrome) 03/15/2014 Overview (11/28/2023): left Dyslipidemia 03/15/2014 Assessment & Plan (10/22/2024 9:52 AM EDT): Continue atorvastatin . Due for labs in 2 months which is ordered Orders: Lipid panel with reflex to direct LDL; Future Comprehensive metabolic panel; Future atorvastatin (LIPITOR) 40 mg tablet; Take 1 tablet (40 mg total) by mouth at bedtime. Assessment & Plan (04/05/2024 5:42 PM EST): Continue atorvastatin nightly Orders: atorvastatin (LIPITOR) 40 mg tablet; Take 1 tablet (40 mg total) by mouth at bedtime. Osteopenia of lumbar spine 03/15/2014 Overview (11/28/2023): Bone density 2011 Assessment & Plan (10/22/2024 9:52 AM EDT): continue calcium/vitamin D daily. On Zometa every 6 months through her oncologist Depression 12/23/2013 Assessment & Plan (10/22/2024 9:52 AM EDT): Will increase Wellbutrin to 450 mg daily from 300 mg to help with her grief/mood symptoms. She will let me know when she is ready to cut back down to her regular 300 mg dosing Orders: buPROPion XL (WELLBUTRIN XL) 150 mg 24 hr tablet; Take 1 tablet (150 mg total) by mouth 1 (one) time each day in the morning. Do not crush, chew, or split. Assessment & Plan (04/05/2024 5:42 PM EST): Well-controlled. Continue Wellbutrin daily Orders: buPROPion XL (WELLBUTRIN XL) 300 mg 24 hr tablet; Take 1 tablet (300 mg total) by mouth 1 (one) time each day. Do not crush, chew, or split. Current Treatment and Therapy Plans ZOLEDRONIC ACID ( ZOMETA ) EVERY 6 MONTHS* Plan Start Date:06/21/2024 Plan Provider:London Gasca MD Linked Problems Invasive lobular carcinoma o f right breast in female ([facility] V24, [facility] V28)Osteopenia of lumbar spineAromatase inhibitor useAromatase inhibitor use Treatment Medications No medications scheduled. Past Treatment and Therapy Plans No past plan information found. Resolved Problems Problem Noted Date Diagnosed Date Resolved Date Malignant neoplasm of unspec ified site of right female breast ([facility] V24, [facility] V28) 01/23/2024 10/22/2024
--- OUTSIDE RECORDS SUMMARY | 2024-11-10 12:55 | XMS_ITS | Clinical Summary ---
Author Organization [address] Address [address] [place] [phone] Phone Care Team Providers Care Wood Lather Name Role Phone Anais Turk MD Primary Care Pr ovider Allergies No known active allergies Medications calcium carbonate-vitam in D3 1,000 mg-20 mcg (800 unit) tablet Take by mouth. Active diclofenac (VOLTAREN) 1 % topical gel Apply 2 g topically 2 (two) times a day. 200 g 11 5 Active anastrozole (ARIMIDEX) 1 mg Take 1 tablet (1 mg total) by mouth 1 (one) time each day Swallow whole with a drink of water. 30 tablet 11 5 06/03/19 26 Active magnesium oxide (MAG-OX) 400 mg (241.3 elemental magnesium) tablet TAKE ONE TABLET BY MOUTH EVERY DAY 30 tablet 3 5 Active buPROPion XL (WELLBUTRIN XL) 300 mg 24 hr tabletIndicatio ns:Current mild episode of major depressive disorder, unspecified whether recurrent (CMS/HCC V24) TAKE ONE TABLET BY MOUTH EVERY DAY. DO NOT CRUSH, CHEW, OR SPLIT. 90 tablet 1 5 Active atorvastatin (LIPITOR) 40 mg tabletIndicatio ns:Dyslipidemia ,Bilateral carotid artery stenosis,Person al history of transient ischemic attack (TIA), and cerebral infarction without residual deficits Take 1 tablet (40 mg total) by mouth at bedtime. 90 each 1 5 04/21/19 26 Active aspirin 81 mg EC tabletIndicatio ns:Bilateral carotid artery stenosis,Person al history of transient ischemic attack (TIA), and cerebral infarction without residual deficits Take 1 tablet (81 mg total) by mouth 1 (one) time each day. 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 180 each 1 5 04/21/19 26 Active buPROPion XL (WELLBUTRIN XL) 150 mg 24 hr tabletIndicatio ns:Current moderate episode of major depressive disorder, unspecified whether recurrent (CMS/HCC V24, CMS/HCC V28) Take 1 tablet (150 mg total) by mouth 1 (one) time each day in the morning. Do not crush, chew, or split. 90 each 1 5 04/21/19 26 Active aspirin 81 mg EC tablet Take 1 tablet (81 mg total) by mouth 1 (one) time each day. 5 10/23/19 25 Discontinu ed(Reorder ) atorvastatin (LIPITOR) 40 mg tabletIndicatio ns:Dyslipidemia Take 1 tablet (40 mg total) by mouth at bedtime. 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 180 each 1 5 10/23/19 25 Discontinu ed(Reorder ) Active Problems Problem Noted Date Diagnosed Date [...] carcinoma o f right breast in female ([facility] V24, [facility]/HCC V28) 12/19/2023 Cancer Staging:Clinical:Stage IA(cT1c, cN0, cM0, G1, ER+, UT+, HER2-) - Signed by London Gasca MD on 01/21/2024 Overview (12/19/2023): invasive lobular carcinoma, MSBR grade 2. Right axilla lymph node showed nonspecific findings of increased CD4: CD8 of uncertain significance, consider excisional biopsy if there is a concern for lymphoproliferative disorder. ER positive( 100%), UT positive (10% of tumor cells), Her2 negative [...] general and how their size, shape, and pattern changer time affect her level of suspicion [...] & Plan (10/18/2024 1:34 PM EDT): Ms. Carroll is a 73 y.o. female who was [...] day. Do not crush, chew, or split. Resolved Problems Problem Noted Date Diagnosed Date Resolved Date Malignant neoplasm of unspec ified site of right female breast ([facility] V24, [facility] V28) 01/23/2024 10/22/2024 Encounters Date Type Department Care Team Description 11/04/2024 Telephone [facility] Breast Health Consult [address] [place] [phone] Leticia Lynn MD 10/22/2024 9:00 AM EDT Office Visit [facility] Medicine [address] [phone] Anais Turk MD Annual wellness visit (Primary Dx); Dyslipidemia; Current moderate episode of major depressive disorder, unspecified whether recurrent (CMS/[facility] V24, CMS/[facility] V28); Bilateral carotid artery stenosis; Personal history of transient ischemic attack (TIA), and cerebral infarction without residual deficits; Osteoarthritis of cervical spine with myelopathy; Cervical stenosis of spinal canal; Prediabetes; Breast pain, right; Invasive lobular carcinoma of right breast in female (CMS/HCC V24, CMS/HCC V28); Osteopenia of lumbar spine; Lung nodules 10/19/2024 2:30 PM EDT Office Visit Thoracic Surgery - [place] [address] [facility] [address] [place] [phone] Carolynn Kiser NP Lung nodules (Primary Dx) 10/07/2024 2:16 PM EDT - 10/07/2024 11:59 PM EDT Hospital Encounter [facility] CT Scan [address] [place] [phone] Lung nodule Discharge Disposition: Home or Self Care 09/14/2024 Telephone Orthopedic Surgery [facility] [address] [phone] Frederic Galindo DPM 09/09/2024 9:30 AM EDT Office Visit Orthopedic Surgery [facility] [address] [facility] [address] [place] [phone] Frederic Galindo DPM Pain in toes of both feet (Primary Dx); Subungual hematoma of great toe of left foot, initial encounter; Onychomycosis from Last 3 Months Immunizations Immunization Administration Dates Next Due Moderna SARS-CoV-2 COVID-19, mRNA, LNP-S, preservative free 07/13/2020 PPD Test 06/14/2015 Pneumococcal conjugate 13 va lent (Prevnar 13, PCV13) 2mo and older 12/28/2014 Pneumococcal polysaccharide 23 valent (Pneumovax 23) 2yo and older 02/27/2016 Td Tetanus diptheria (Tdvax) 7yo and older 04/13 Tdap Tetanus diptheria acell ular pertussis (Boostrix; Adacel) 7yo and older 12/16/2008 Zoster Live 03/29/2015 Zoster recombinant (Shingrix) 19yo and older 11/2019,04/09/2019 Surgical History Surgery Date Site/Laterality Comments NECK SURGERY PROCEDURE: HISTORICAL NECK SURGERY OTHER SURGICAL HISTORY 2014 PROCEDURE: MAMMOGRAM OTHER SURGICAL HISTORY 2010 PROCEDURE: OUTSIDE PAP SMEAR TONSILLECTOMY PROCEDURE: HISTORICAL TONSILLECTOMY COLONOSCOPY 2002 PROCEDURE: HISTORICAL COLONOSCOPY MASTECTOMY, PARTIAL 02/12/2024 right breast smart-clip localized partial mastectomy, right axillary SLNB with dual tracer, and right axillary targeted dissection on 02/12/[address] Lynn. Medical History Medical History Date Comments Polyarthritis rheumatica (CM S/HCC V24, CMS/HCC V28) DX:Polyarthritis rheumatica (HCC) Depression DX:Depression CTS (carpal tunnel syndrome) 03/15/2014 DX: CTS (carpal tunnel syndrome) History of vitamin D deficiency 03/15/2014 DX:History of vitamin D deficiency Osteopenia 03/15/2014 DX:Osteopenia; C OMMENT: Bone density 2011 GERD (gastroesophageal reflux disease) 03/15/2014 DX:GERD (gastroesophageal reflux disease) Dyslipidemia 03/15/2014 DX:Dyslipidemia Chronic mastoiditis, bilateral 10/18/2020 D X:Chronic mastoiditis, bilateral; COMMENT: Dr. Espinal, no need for future intervention PONV (postoperative nausea a nd vomiting) Aromatase inhibitor use 04/21/2024 Family History Medical History Relation Name Comments Heart attack Aunt paternal 60s Other: esoph cancer Father Other: Mother Other: Paget's Sister of the breast Heart attack Uncle paternal 60s Colon cancer Neg Hx Ovarian cancer Neg Hx Relation Name Status Comments Aunt Father (Age 62) esophageal cancer Mother aneurysm Sister Uncle Social History Tobacco Use Types Packs/Day Years Used Date Smoking Tobacco: Never Smokeless Tobacco: Never Tobacco Cessation:Counseling Given: Not Answered Alcohol Use Standard Drinks/Week Comments Yes 0 (1 standard drink = 0.6 oz pur e alcohol) Occas Housing Instability Answer Date Recorde d Are you worried that in the next 2 months you may not have stable housing? No 10/22/2024 Food Access & Nutrition Answer Date Rec orded Do you have access to a vari ety of food including fruits and vegetables? No 10/22/2024 Access to Healthcare Answer Date Record ed Within the last 3 months, sisi kaye many times did you visit the emergency department for your medical care? 0 10/22/2024 Health Literacy Answer Date Recorded How often do you need to hav e someone help you when you read instructions, pamphlets, or other written material from your doctor or pharmacy? Never 10/22/2024 Caregiver: How often do you need to have someone help you when you read instructions, pamphlets, or other written material from your doctor or pharmacy? Not on file 10/22/2024 Financial Risk Answer Date Recorded How hard is it for you to pa y for the very basics like food, housing, medical care, and air conditioning / heating? Not very hard 10/22/2024 Transportation Answer Date Recorded Has the lack of transportati on kept you from meetings, work, or from getting things needed for daily living? No Has the lack of transportati on kept you from medical appointments or from getting medications? No 10/22/2024 Social Isolation Answer Date Recorded How often do you feel lonely or isolated from th ose around you? Never 10/22/2024 Food Risk Answer Date Recorded Within the past 12 months we worried whether our food would run out before we got money to buy more. Never true 10/22/2024 Within the past 12 months th e food we bought just didn't last and we didn't have money to get more. Never true 10/22/2024 Dependent Care Answer Date Recorded Do you need help finding or paying for care for your loved ones. For example, child care associate or elderly care for an older adult? No 10/22/2024 Education Answer Date Recorded Do you think completing more education or training, like finishing a GED, going to college, or learning a trade, would be helpful for you? No 10/22/2024 Employment and Income Answer Date Recor ded During the last four weeks, have you been actively looking for work? No 10/22/2024 Living Situation Answer Date Recorded What is your living situation? Unrecognized valu e 10/22/2024 Interpersonal Safety Answer Date Record ed Physical Abuse Unrecognized value 02/12/2024 Verbal Abuse Unrecognized value 02/12/2024 Comments No Sex and Gender Information Value Date Recorded Sex Assigned at Female 02/19/2024 9:23 AM EST Legal Sex Female 10:35 AM EST Gender Identity Female 02/19/2024 9:23 AM EST Sexual Orientation Straight 02/19/2024 9: 23 AM EST Obstetrics History Last Filed Vital Signs Vital Sign Reading Time Taken Comments Blood Pressure 104/63 10/22/2024 9:01 AM EDT Pulse 81 10/22/2024 9:01 AM EDT Temperature 35.8 C (96.5 F) 10/22/2024 9:01 AM EDT Respiratory Rate 15 10/22/2024 9:01 AM EDT Oxygen Saturation 97% 10/22/2024 9:01 AM EDT Inhaled Oxygen Concentration - - Weight 50.3 kg (111 lb) 10/22/2024 9:01 AM EDT Height 152.4 cm (5') 10/22/2024 9:01 AM EDT Body Mass Index 21.68 10/22/2024 9:01 AM EDT Plan of Treatment Upcoming Encounters Date Type Department Care Team (Late st Contact Info) Description 12/03/2024 2:20 PM EDT Office Visit Breast Surgery - [place] [address] [place] [phone] Leticia Lynn MD [address] [place] [phone] 12/22/2024 9:00 AM EST Office Visit [facility] - [place] [address] [place] [phone] London Gasca MD [address] [place] [phone] 12/22/2024 9:30 AM EST Appointment [facility] [place] - [place] [address] [place] [phone] 02/21/2025 11:00 AM EST Office Visit Adult Medicine [address] [phone] Anais Turk MD [address] [place] [address] Health Maintenance Due Date Last Done Comments Falls Risk Assessment 10/22/2025 10/22/2024 , 06/21/2024 Medicare Annual Wellness Visit 10/22/2025 10/22/2024 Social Influencers of Health Screening 10/22/2025 10/22/2024 Cholesterol Screening (Lipid Panel) 01/28/2029 01/29/2024, 09/23/2023, 09/23/2023 Osteoporosis Screening (Bone Density Screening) 03/08/2029 03/08/2024, 11/26/2019 DTaP,Tdap,and Td Vaccines (3 - Td or Tdap) 04/13/2029 04/14/2019, 12/16/2008 Colorectal Cancer Screening: Colonoscopy 09/26/2030 09/26/2020 Hepatitis C Screening Completed 12/26/2014 Pneumococcal Vaccine: 50+ Years Completed 02/27/2016, 12/28/2014 Zoster Vaccines Completed 10/21/2019, 04/09/2019, 03/29/2015 COVID-19 Vaccine Discontinued 02/21/2021, 07/13/2020, 06/22/2020 Breast Cancer Screening Discontinued 02/18/19 25, 12/03/2023 Depression Screening Completed 10/22/2024, 01/31/2023 HIB Vaccines Aged Out No longer eligi ble based on patient's age to complete this topic HPV Vaccines Aged Out No longer eligi ble based on patient's age to complete this topic Hepatitis A Vaccines Aged Out No long er eligible based on patient's age to complete this topic Hepatitis B Vaccines Aged Out No long er eligible based on patient's age to complete this topic IPV Vaccines Aged Out No longer eligi ble based on patient's age to complete this topic Influenza Vaccine Discontinued MMR Vaccines Aged Out No longer eligi ble based on patient's age to complete this topic Meningococcal ACWY Vaccine Aged Out N o longer eligible based on patient's age to complete this topic Meningococcal B Vaccine Aged Out No l onger eligible based on patient's age to complete this topic RSV Immunization Adult Patients Discontinued RSV Immunization Patients Under 20 months Aged Out No longer eligible based on patient's age to complete this topic Varicella Vaccines Aged Out No longer eligible based on patient's age to complete this topic Medical Devices Implanted Type Area Copy Camera Operator Device Identifier Shelf Expiration Date Model / Serial / Lot Hemostat Surg Ah Joshua 1gm - Sn/A - [id number] Implanted:Qty : 2 on 02/12/2024 by Leticia Lynn MD at [facility] Hemostasis Right: Breast CR BARD - DAVOL DIV 04/09/2028 [id number] / N/A / [id number] [employer] Biopsy Site Marker Implanted:Qty : 1 on 01/07/2024 by Nicky Angel MD at [facility] Implants Left: Axilla OTHER 11/13/2027 [id number] / [id number] / [id number] [employer] Biopsy Site Marker Implanted:Qty : 1 on 01/07/2024 by Nicky Angel MD at [facility] Implants Right: Axilla OTHER 11/13/2027 [id number] / [id number] / [id number] Smartclip Lite Implanted:Qty : 1 on 02/12/2024 by Nicky Angel MD at [facility] Implants Right: Breast OTHER 07/07/2025 SMART[employer]IP LT-PNK-5 / [id number] / Smartclip Lite Implanted:Qty : 1 on 02/12/2024 by Nicky Angel MD at [facility] Implants Right: Axilla OTHER 05/05/2025 SMARTCLIP LT-PURP-5 / [id number] / Smartclip Lite Implanted:Qty : 1 on 02/12/2024 by Nicky Angel MD at [facility] Implants Right: Axilla OTHER 07/23/2025 SMARTCLIP LT-GRN-5 / [id number] / Procedures Procedure Name Priority Date/Time Associated Diagnosis Comments CT CHEST WO CONTRAST Routine 10/07/2024 2:33 PM EDT Lung nodule BD BONE DENSITY DXA AXIAL SKELETON Routine 03/08/2024 1:58 PM EST Other specified disorders of bone density and structure, left thigh EXTERNAL MAMMOGRAM REPORT 02/19/2024 LIPID PANEL WITH REFLEX TO DIRECT LDL Routine 01/29/2024 11:01 AM EST Dyslipidemia DEPRESSION SCREENING Routine 01/31/2023 COLONOSCOPY Routine 09/26/2020 HEPATITIS C SCREENING Routine 12/26/2014 from Last 3 Months or Most Recently Relevant to Health Maintenance Results * CT Chest wo Contrast (10/07/2024 2:33 PM EDT) Anatomical Region Laterality Modality Body Computed Tomogra phy 10/13/2024 1:57 PM EDT Impressions 10/13/2024 2:03 PM EDT Stable 7 mm groundglass nodule at the right apex. Continued surveillance advised. -------- FINAL REPORT -------- Dictated By: Roselia Plascencia Dictated Date: 10/13/2024 13:57 ET Assigned Physician: Roselia Plascencia Reviewed and Electronically Signed By: Roselia Plascencia Signed Date: 10/13/2024 14:03 ET Workstation ID: [id number] Transcribed By: Self Edit Transcribed Date: 10/13/2024 13:57 ET Narrative 10/13/2024 2:03 PM EDT PROCEDURE: CT CHEST WITHOUT CONTRAST INDICATION: pulmonary nodule TECHNIQUE: Chest CT without contrast. Multi planar reformats were created and interpreted. The examination was performed utilizing dose reduction techniques.Total DLP 280 mGy/cm COMPARISON: No priors available. FINDINGS: LUNGS/PLEURA: Pleural based scarring in the anterior right upper lobe lobe presumably related to posttreatment changes. 7 mm groundglass nodule in the right apex MEDIASTINUM: Thyroid gland is unremarkable. No mediastinal or hilar lymphadenopathy. Cardiac chambers are normal in size. No pericardial effusion. Esophagus is normal CHEST WALL: Post procedure changes of the right breast and axilla. UPPER ABDOMEN:Low-attenuation lesion in segment 4 presumably representing a cyst. BONES: No acute fracture. Scattered degenerative changes seen throughout the bones. Procedure Note Roselia Plascencia MD - 10/13/2024 PROCEDURE: CT CHEST WITHOUT CONTRAST INDICATION: pulmonary nodule TECHNIQUE: Chest CT without contrast. Multi planar reformats were createdand interpreted. The examination was performed utilizing dose reductiontechniques.Total DLP 280 mGy/cm COMPARISON: No priors available. FINDINGS: LUNGS/PLEURA: Pleural based scarring in the anterior right upper lobe lobepresumably related to posttreatment changes. 7 mm groundglass nodule inthe right apex MEDIASTINUM: Thyroid gland is unremarkable. No mediastinal or hilarlymphadenopathy. Cardiac chambers are normal in size. No pericardialeffusion. Esophagus is normal CHEST WALL: Post procedure changes of the right breast and axilla. UPPER ABDOMEN:Low-attenuation lesion in segment 4 presumably representinga cyst. BONES: No acute fracture. Scattered degenerative changes seen throughoutthe bones. IMPRESSION: Stable 7 mm groundglass nodule at the right apex. Continued surveillanceadvised. -------- FINAL REPORT -------- Dictated By: Roselia Plascencia Dictated Date: 10/13/2024 13:57 ET Assigned Physician: Roselia Plascencia Reviewed and Electronically Signed By: Roselia Plascencia Signed Date: 10/13/2024 14:03 ET Workstation ID: [id number] Transcribed By: Self Edit Transcribed Date: 10/13/2024 13:57 ET Carolynn Kiser NP IMG CT PROCEDURES Final Res ult * BD Bone Density DXA Axial Skeleton (03/08/2024 1:58 PM EST) Anatomical Region Laterality Modality Wrist, Hip, L-spine Bone Densito metry 03/09/2024 8:21 AM EST Impressions 03/09/2024 8:24 AM EST Osteopenia. The NOF guidelines recommend that FDA approved medical therapies be considered in postmenopausal women and men age >50 years with a: i. Hip or vertebral (clinical or morphometric) fracture ii. T score of < -2.5 at the spine or hip iii. 10 year fracture probability by FRAX of >3% for hip fracture, or >20% for major osteoporotic fracture PLEASE NOTE: W.H.O. classification is based on lowest measured density at the spine, femoral neck, or total hip.This classification has prognostic significance when applied to post menopausal women and older men. 1) The World Health Organization defines low BMD as follows: T-score Normal at or > -1 Osteopenia < -1 and > -2.5 Osteoporosis at or < -2.5 without fractures Established osteoporosis < -2.5 with fractures -------- FINAL REPORT -------- Dictated By: Joana Murillo Dictated Date: 03/09/2024 08:21 ET Assigned Physician: Joana Murillo Reviewed and Electronically Signed By: Joana Murillo Signed Date: 03/09/2024 08:24 ET Workstation ID: [id number] Transcribed By: Self Edit Transcribed Date: 03/09/2024 08:21 ET Narrative 03/09/2024 8:24 AM EST Clinical history: M85.852 Scans of the lumbar spine and hips were performed on a TidalScale/Weilos fan beam bone densitometer. Bone mineral density measurements and associated T and Z scores respectively are as follows: Lumbar Spine: L1-L4 BMD: 1.014 g/cm2 T-Score: -0.3 Z-Score: 2.1 Compared with the prior study dated 11/26/2019, the BMD reading has increased which is not statistically significant Left Proximal Femur: Neck BMD: 0.578 g/cm2 T-Score: -2.4 Z-Score: -0.4 Total BMD: 0.696 g/cm2 T-Score: -2.0 Z-Score: -0.2 Compared with the prior study the mean BMD reading in the total left hip has decreased which is not statistically significant Compared with standards for the young adult, lowest measured bone density places the patient in the W.H.O. normal range. FRAX 10 year probability of major osteoporotic fracture: 14% FRAX 10 year probability of hip fracture: 4.4% Population: [place] () Procedure Note Joana Murillo MD - 03/09/2024 Clinical history: M85.852 Scans of the lumbar spine and hips were performed on a TidalScale/JDFigyfan beam bone densitometer. Bone mineral density measurements and associated T and Z scoresrespectively are as follows: Lumbar Spine: L1-L4 BMD: 1.014 g/cm2 T-Score: -0.3 Z-Score: 2.1 Compared with the prior study dated 11/26/2019, the BMD reading hasincreased which is not statistically significant Left Proximal Femur: Neck BMD: 0.578 g/cm2 T-Score: -2.4 Z-Score: -0.4 Total BMD: 0.696 g/cm2 T-Score: -2.0 Z-Score: -0.2 Compared with the prior study the mean BMD reading in the total left hiphas decreased which is not statistically significant Compared with standards for the young adult, lowest measured bone densityplaces the patient in the W.H.O. normal range. FRAX 10 year probability of major osteoporotic fracture: 14% FRAX 10 year probability of hip fracture: 4.4% Population: [place] () IMPRESSION: Osteopenia. The NOF guidelines recommend that FDA approved medical therapies beconsidered in postmenopausal women and men age >50 years with a: i. Hip or vertebral (clinical or morphometric) fracture ii. T score of < -2.5 at the spine or hip iii. 10 year fracture probability by FRAX of >3% for hip fracture, or >20%for major osteoporotic fracture PLEASE NOTE: W.H.O. classification is based on lowest measured density at the spine,femoral neck, or total hip.This classification has prognostic significancewhen applied to post menopausal women and older men. 1) The World Health Organization defines low BMD as follows: T-score Normal at or > -1 Osteopenia < -1 and > -2.5 Osteoporosis at or < -2.5 withoutfractures Established osteoporosis < -2.5 with fractures -------- FINAL REPORT -------- Dictated By: Joana Murillo Dictated Date: 03/09/2024 08:21 ET Assigned Physician: Joana Murillo Reviewed and Electronically Signed By: Joana Murillo Signed Date: 03/09/2024 08:24 ET Workstation ID: [id number] Transcribed By: Self Edit Transcribed Date: 03/09/2024 08:21 ET Anais Turk MD [facility] DXA PROCEDUR ES Final Result * External Mammogram Report (02/19/2024) Anatomical Region Laterality Modality Mammography Provider [facility] BI PROCEDURES Final Result * Lipid panel with reflex to direct LDL (01/29/2024 11:01 AM EST) [facility] Signature Cholesterol 197 0 - 200 mg/dL LAB CHEMISTRY METHOD 01/29/2024 2:43 PM EST [facility] Triglycerides 104 0 - 150 mg/dL LAB CHEMISTRY METHOD 01/29/2024 2:43 PM EST [facility] HDL 79 >=40 mg/dL LAB CHEMISTRY METHOD 01/29/2024 2:43 PM [facility] LDL Calculated 97 0 - 100 mg/dL LAB CHEMISTRY METHOD 01/29/2024 2:43 PM [facility] VLDL Cholesterol Raimundo 20.8 mg/dL LAB CHEMISTRY METHOD 01/29/2024 2:43 PM [facility] Non HDL Chol. (LDL+VLDL) 118 <145 mg/dL LAB CHEMISTRY METHOD 01/29/2024 2:43 PM [facility] Chol/HDL Ratio 2.5 0.0 - 4.4 LAB CHEMISTRY METHOD 01/29/2024 2:43 PM [facility] Blood Venous blood specimen / Unknown Venipuncture / Unknown 01/29/2024 11:01 AM EST 01/29/2024 11:01 AM EST Anais Turk MD LAB BLOOD ORDERA BLES Final Result [facility] [address] [place] [address], [place] [phone] * Depression Screening (01/31/2023) Pathologist [facility] Depression Screening abstracted Historical Provider HEALTH MAINTENANCE Final Result * Colonoscopy (09/26/2020) Pathologist [facility] Colonoscopy normal, abstracted Anatomical Region Laterality Modality Other Historical Provider HEALTH MAINTENANCE Final Result * Hepatitis C Screening (12/26/2014) Pathologist [facility] Hepatitis C Screening abstracted Historical Provider HEALTH MAINTENANCE Final Result from Last 3 Months or Most Recently Relevant to Health Maintenance Insurance MEDICARE [facility] Advance Directives * Full Code - Default (Latest Code Status on File) Date Activated Date Inactivated Comments 02/12/2024 6:07 AM 02/12/2024 5:28 PM This is order is used when code status has not been discussed with the patient, or code status is otherwise unknown/unconfirmed To update the patient's code status, place a code status order. Do not modify or discontinue any currently active code status orders. * Full Code - Default Date Activated Date Inactivated Comments 02/12/2024 6:07 AM 02/12/2024 6:07 AM This is order is used when code status has not been discussed with the patient, or code status is otherwise unknown/unconfirmed To update the patient's code status, place a code status order. Do not modify or discontinue any currently active code status orders. Care Teams Wood Lather Relationship Specialty Start Date End Date Anais Turk MD [address] [place] [address] PCP - General Internal Medicine 01/23/24
--- OUTSIDE RECORDS SUMMARY | 2024-11-10 12:55 | XMS_ITS ---
[facility] Name [facility] Organization Unknown Results Test Name/Text Value Interpretation Date Range Source Magnesium SerPl-mCnc 2.1 mg/dL 06/15/2024 1.7 - 2.8 [facility] Phosphate SerPl-mCnc 3.9 mg/dL 06/15/2024 2.5 - 4.5 [facility] ALT SerPl-cCnc 23.0 unit/L 06/15/2024 7 - 52 [facility] Potassium SerPl-sCnc 4.8 mmol/L 06/15/2024 3.5 - 5.1 [facility] Prot SerPl-mCnc 6.6 g/dL 06/15/2024 6.4 - 8.5 [facility] Chloride SerPl-sCnc 104.0 mmol/L 06/15/2024 98 - 1 07 [facility] Albumin SerPl-mCnc 4.2 g/dL 06/15/2024 3.5 - 5 [facility] Glucose SerPl-mCnc 81.0 mg/dL 06/15/2024 70 - 199 [facility] ALP SerPl-cCnc 69.0 unit/L 06/15/2024 34 - 104 [facility] CO2 SerPl-sCnc 24.0 mmol/L 06/15/2024 24 - 32 [facility] Sodium SerPl-sCnc 139.0 mmol/L 06/15/2024 135 - 14 5 [facility] Bilirub SerPl-mCnc 0.3 mg/dL 06/15/2024 0.3 - 1 [facility] BUN SerPl-mCnc 28.0 mg/dL Above high normal 06/15/2024 7 - 1 7 [facility] AST SerPl-cCnc 26.0 unit/L 06/15/2024 5 - 40 [facility] Creat SerPl-mCnc 0.7 mg/dL 06/15/2024 0.5 - 1 [facility] Anion Gap SerPl Calc-sCnc 11.0 06/15/2024 5 - 14 [facility] BUN/Creat SerPl 40.0 Above high normal 06/15/2024 12 - 20 [facility] eGFRcr SerPlBld CKD-EPI 2020 90.0 mL/min/1.73m2 06/15/2024 - [facility] Calcium SerPl-mCnc 9.2 mg/dL 06/15/2024 8.4 - 10.2 [facility] Phosphate SerPl-mCnc 3.5 mg/dL Normal 04/19/2024 2.5 - 4.5 [facility] Magnesium SerPl-mCnc 1.8 mg/dL Below low normal 04/19/2024 1.9 - 2.6 [facility] 25(OH)D3 SerPl-mCnc 35.6 ng/mL Normal 02/05/2024 30 - 80 [facility] Glucose Bld-mCnc 78.0 mg/dL Normal 01/14/2024 70 - 199 C [facility] History of Medication Use Medication Directions Dispensed Refills Start Date End Date Stat buPROPion XL (WELLBUTRIN XL) 150 mg 24 hr tablet Take 1 tablet (150 mg total) by mouth 1 (one) time each day in the morning. Do not crush, chew, or split. 10/22/2024 active zoledronic acid (ZOMETA) 3.5 mg in sodium chloride 0.9 % 104.38 mL IVPB 3.5 mg, intravenous, at 417.5 mL/hr, Administer over 15 Minutes, Once, On 06/21/24 at 0845, For 1 dose, HAZARDOUS Drug Precautions - Low Risk (Category A/NIOSH Group 3) Reproductive Risk Only: - Double pair of ASTM standard D6978 certified chemotherapy gloves - Eye protection (goggles or face josé 06/21/2024 5 completed ciclopirox (PENLAC) 8 % solution Apply topically at bedtime. Apply over nail and surrounding skin. Apply daily over previous coat. After seven (7) days, may remove with alcohol and continue cycle. 06/14/2024 active magnesium oxide (MAG-OX) 400 mg (241.3 elemental magnesium) tablet Take 1 tablet (400 mg total) by mouth 1 (one) time each day. 04/19/2024 active magnesium oxide (MAG-OX) 400 mg (241.3 elemental magnesium) tablet Take 1 tablet (400 mg total) by mouth 1 (one) time each day. 04/19/2024 active buPROPion XL (WELLBUTRIN XL) 300 mg 24 hr tablet Take 1 tablet (300 mg total) by mouth 1 (one) time each day. Do not crush, chew, or split. 04/05/2024 active buPROPion XL (WELLBUTRIN XL) 300 mg 24 hr tablet Take 1 tablet (300 mg total) by mouth 1 (one) time each day. Do not crush, chew, or split. 04/05/2024 active anastrozole (ARIMIDEX) 1 mg Take 1 tablet (1 mg total) by mouth 1 (one) time each day Swallow whole with a drink of water. 03/10/2024 active anastrozole (ARIMIDEX) 1 mg Take 1 tablet (1 mg total) by mouth 1 (one) time each day Swallow whole with a drink of water. 03/10/2024 active diclofenac (VOLTAREN) 1 % topical gel Apply 2 g topically 2 (two) times a day. 03/10/2024 active diclofenac (VOLTAREN) 1 % topical gel Apply 2 g topically 2 (two) times a day. 03/10/2024 active HYDROmorphone (DILAUDID) injection 0.2 mg 0.2 mg, intravenous, Every 15 min PRN, moderate pain, Starting on Jennifer 02/12/24 at 1204, For 10 doses, Recovery (only), For pain (4-6). DO NOT EXCEED 2MG 02/12/2024 active HYDROmorphone (DILAUDID) injection 0.5 mg 0.5 mg, intravenous, Every 15 min PRN, severe pain, Starting on Jennifer 02/12/24 at 1204, For 4 doses, Recovery (only), For pain (7-10). 02/12/2024 active oxyCODONE (ROXICODONE) 5 mg immediate release tablet Take 1 tablet (5 mg total) by mouth every 4 (four) hours if needed (pain). Max Daily Amount: 30 mg 02/12/2024 active sodium chloride 0.9 % flush 10 mL [Order 1 Start] Name: Insert peripheral IV Signed Summary: STAT, Once, On Fri02/12/24 at 0607, For 1 occurrence, Preprocedure [Order 1 End] [Order 2 Start] Name: Maintain IV access Signed Summary: Until discontinued, Starting on Fri02/12/24 at 0607, Until Specified, Preprocedure [Order 2 End] [Order 3 02/12/2024 active barium sulfate (READI-CAT 2) 2 % (w/v) suspension 450 mL 450 mL, oral, Once in imaging, Starting on Fri01/14/24 at 0725, For 1 dose 01/14/2024 4 completed F-18 FDG pet diag radio-isotope injection 14.04 millicurie 14.04 millicurie, intravenous, Once in imaging, Starting on Fri01/14/24 at 0646, For 1 dose 01/14/2024 4 completed aspirin 81 mg EC tablet Take 1 tablet (81 mg total) by mouth 1 (one) time each day. 09/22/2023 5 active gabapentin (NEURONTIN) 100 mg capsule Take 2 capsules (200 mg total) by mouth 2 (two) times a day. 09/03/2023 active atorvastatin (LIPITOR) 40 mg tablet Take 1 tablet (40 mg total) by mouth at bedtime. 06/10/2023 active atorvastatin (LIPITOR) 40 mg tablet Take 1 tablet (40 mg total) by mouth at bedtime. 06/10/2023 active albuterol HFA (PROAIR HFA ; PROVENTIL HFA ; VENTOLIN HFA) 90 mcg/actuation inhaler INHALE TWO PUFFS BY MOUTH EVERY 4 TO 6 HOURS NEEDED FOR SHORTNESS OF BREATH 04/25/2023 active calcium carbonate-vitamin D3 1,000 mg-20 mcg (800 unit) tablet Take by mouth. act chandra Problems Problem Status Onset Date Problem Type Date of Resolution Source Osteoarthritis of cervical spine with myelopathy active 2024-01-29 ProblemAct [facility] Carotid artery stenosis active 2023-06-12 ProblemAct [facility] Chronic leukopenia active 2023-06-10 ProblemAct [facility] Lung nodules active 2023-09-22 ProblemAct [facility] Localized enlarged lymph nodes active 2024-01-23 ProblemAct [facility] Invasive lobular carcinoma of right breast in female ([facility] V24, [facility] V28) active 2023-12-19 ProblemAct [facility] Personal history of transient ischemic attack (TIA), and cerebral infarction without residual deficits active 2024-10-22 ProblemAct [facility] Depression active 2013-12-23 ProblemAct [facility] Cervical stenosis of spinal canal active 2024-01-29 ProblemAct [facility] Degenerative joint disease of hand active 2022-04-02 ProblemAct [facility] Osteopenia of lumbar spine active 2014-03-15 ProblemAct [facility] CTS (carpal tunnel syndrome) active 2014-03-15 ProblemAct [facility] Chronic mastoiditis, bilateral active 2020-10-18 ProblemAct [facility] Prediabetes active 2023-09-25 ProblemAct [facility] Dyslipidemia active 2014-03-15 ProblemAct [facility] Aromatase inhibitor use active 2024-04-21 ProblemAct [facility] Drug therapy active EncounterDiagnosisAct [facility] Malignant neoplasm of unspecified site of right female breast ([facility] V24, [facility] V28) active 2024-01-23 ProblemAct [facility] Immunizations Vaccine Date Source Lot Number Status Moderna SARS-CoV-2 COVID-19, mRNA, LNP-S, preservative free 07/13/2020 [facility] completed Zoster recombinant (Shingrix ) 19yo and older 10/21/2019 [facility] completed Td Tetanus diptheria (Tdvax) 7yo and older 04/14/2019 [facility] [id number] completed Zoster recombinant (Shingrix ) 19yo and older 04/09/2019 [facility] completed Pneumococcal polysaccharide 23 valent (Pneumovax 23) 2yo and older 02/27/2016 [facility] [id number] com pleted PPD Test 06/14/2015 [facility] [id number] completed Zoster Live 03/29/2015 [facility] [id number] completed Pneumococcal conjugate 13 va lent (Prevnar 13, PCV13) 2mo and older 12/28/2014 [facility] complet ed Tdap Tetanus diptheria acell ular pertussis (Boostrix; Adacel) 7yo and older 12/16/2008 [facility] completed Encounters Encounter Type Encounter Reason Primary Diagnosis Location Date Ambulatory Malignant neoplasm o f unspecified site of right female breast ([facility] V24, [facility] V28) Malignant neoplasm of unspecified site of right female breast ([facility] V24, [facility] V28) [facility] 06/21/2024 Ambulatory Other intermediate accountant (current) drug therapy Other nursing home (current) drug therapy [facility] 06/15/2024 Ambulatory Follow-up Malignant neopla sm of unspecified site of right female breast ([facility] V24, [facility] V28) [facility] 06/02/2024 Ambulatory Follow-up Malignant neopla sm of unspecified site of right female breast ([facility] V24, [facility] V28) [facility] 05/19/2024 Ambulatory Follow-up Malignant neopla sm of unspecified site of unspecified female breast [facility] 04/21/2024 Ambulatory Malignant neoplasm o f unspecified site of right female breast Malignant neoplasm of unspecified site of right female breast [facility] 04/21/2024 Ambulatory Follow-up Malignant neopla sm of unspecified site of right female breast [facility] 03/10/2024 Ambulatory Malignant neoplasm o f unspecified site of right female breast Malignant neoplasm of unspecified site of right female breast [facility] 03/10/2024 Ambulatory Malignant neoplasm o f unspecified site of unspecified female breast Malignant neoplasm of unspecified site of unspecified female breast [facility] 03/10/2024 Ambulatory Post-op Other specified disorders of breast [facility] 03/03/2024 Ambulatory Follow-up Malignant neopla sm of unspecified site of right female breast [facility] 02/24/2024 Ambulatory Post-op Localized enlarg ed lymph nodes [facility] 02/18/2024 Ambulatory Localized enlarged lymph nodes Localized enlarged lymph nodes [facility] 02/12/2024 Ambulatory Localized enlarged lymph nodes Localized enlarged lymph nodes [facility] 02/12/2024 Ambulatory Malignant neoplasm o f unspecified site of right female breast (CMS/HCC) [C50.911] Localized enlarged lymph nodes [facility] 02/12/2024 Ambulatory Malignant neoplasm o f unspecified site of right female breast Malignant neoplasm of unspecified site of right female breast [facility] 01/21/2024 Ambulatory Malignant neoplasm o f unspecified site of right female breast Malignant neoplasm of unspecified site of right female breast [facility] 01/21/2024 Ambulatory Follow-up Follow-up [facility] 01/21/2024 Ambulatory Localized enlarged lymph nodes Localized enlarged lymph nodes [facility] 01/14/2024 Ambulatory Malignant neoplasm o f unspecified site of right female breast Malignant neoplasm of unspecified site of right female breast [facility] 01/12/2024 Ambulatory [facility] 01/12/2024 Ambulatory Localized enlarged lymph nodes Localized enlarged lymph nodes [facility] 01/12/2024 Ambulatory Localized enlarged lymph nodes Localized enlarged lymph nodes [facility] 01/07/2024 Ambulatory Malignant neoplasm o f unspecified site of right female breast Malignant neoplasm of unspecified site of right female breast [facility] 01/04/2024 Ambulatory Localized enlarged lymph nodes Localized enlarged lymph nodes [facility] 01/02/2024 Ambulatory Consult Localized enlarg ed lymph nodes [facility] 12/29/2023 Care Team Organization Name Specialty Phone Email Start Date End Da te [facility] 09/29/20[address] [facility] 01/23/2024 [facility] 01/14/2024 [facility] 01/12/20[address] [facility] 12/31/2023 [facility] 12/29/2023
== END 2024-11-10 11:18 | disposition home or self-care (01) ==
LOC: HO.MAMMO 11:17
PROVIDERS: PCP Family Medicine; Visit Provider Family Medicine
DX: N64.89 Other specified disorders of breast (principal); Z85.3 Personal history of malignant neoplasm of breast
CPT/HCPCS: 77062; 77066

== ENCOUNTER → 2024-11-10 11:30 | Outpatient (BNV) | payer MEDICARE, OTHER, SELFPAY | PROVIDERS: PCP Family Medicine; Visit Provider Internal Medicine | DX: Z85.3 Personal history of malignant neoplasm of breast (principal) | CPT/HCPCS: 77066; G0279 ==